=== PATIENT | female | born 1960 | race Two or more races ===

== ENCOUNTER 2022-10-31 08:03 | Inpatient (IN) | payer MEDICAID, OTHER ==
[~2022-10-31] VITALS: Ht 154.9 cm; Wt 62.1 kg
[2022-10-31 08:56] LABS: Basophils # (auto) 0.1 10 ^3/uL (0-0.2); Basophils % (auto) 1.3 % (0.0-2.0); Eosinophils # (auto) 0.2 10 ^3/uL (0-0.8); Eosinophils % (auto) 2.6 % (0.0-7.0); Hemoglobin 10.3 g/dL (12.2-16.2); Lymphocytes % (auto) 12.9 % (10.0-50.0); Mean Corpuscular Hemoglobin 28.4 pg (28.0-32.0); Mean Corpuscular Hgb Conc. 34.4 g/dL (32.0-36.0); Mean Corpuscular Volume 82.6 fL (80.0-100.0); Monocytes # (auto) 0.5 10 ^3/uL (0-1.3); Neutrophils # (auto) 5.7 10 ^3/uL (1.6-8.6); Neutrophils % (auto) 76.2 % (37.0-80.0); Nucleated Red Blood Cells % 0.1 %; Red Blood Cells 3.63 10^6/uL (4.0-5.20); Red Cell Distribution Width 14.1 % (11.8-14.3); White Blood Cell 7.5 10^3/uL (4.4-10.8)
[2022-10-31 09:02] LABS: Urine Bacteria NONE SEEN /hpf (None Seen); Urine Blood TRACE /uL (Negative); Urine WBC 1 /hpf (0 - 5)
[2022-10-31 09:38] LABS: Albumin 1.9 g/dL (3.4-5.0); Calcium 8.1 mg/dL (8.5-10.1); Potassium 3.6 mmol/L (3.5-5.1)
[2022-10-31 09:42] LABS: BUN/Creatinine Ratio 13.5 (10.0-20.0); Bilirubin, Total 0.2 mg/dL (0.2-1.0); Total Protein 6.5 g/dL (6.4-8.2)
[2022-10-31] MEDS ORDERED: cloNIDine HCL 0.1 MG TAB PO ONE (09:45)
[2022-10-31] MEDS ORDERED: SODIUM CHLORIDE 0.9% 1,000 ML IV ONE (09:45)
[2022-10-31] MEDS ORDERED: ONDANSETRON ODT 4 MG TAB PO ONE (09:45)
[2022-10-31] MEDS ORDERED: PIPERACILLIN-TAZOB 3.375GM 100 ML IV STA (09:58)
[2022-10-31 10:18] LABS: Phosphorus 4.7 mg/dL (2.5-4.90)
[2022-10-31] MEDS ORDERED: DEXTROSE (50%) 50ML SYRG IV ONE (13:00)
[2022-10-31] MEDS ORDERED: HYDR25TA5 PO (13:32)
[2022-10-31] MEDS ORDERED: BENA40TA70 PO (13:32)
[2022-10-31] MEDS ORDERED: CARV6.2551 PO (13:32)
[2022-10-31] MEDS ORDERED: ATOR40TA52 PO (13:32)
[2022-10-31] MEDS ORDERED: LEVO137T3 PO (13:32)
[2022-10-31] MEDS ORDERED: hydrALAZINE HCL 20 MG/ML VL IV ONE (13:45)
[2022-10-31] MEDS ORDERED: FUROSEMIDE 20 MG/2 ML VIAL IV ONE (13:45)
[2022-10-31] MEDS ORDERED: HYDROcodone-ACET 5/325MG TAB PO PRN (13:45)
[2022-10-31] MEDS ORDERED: ONDANSETRON HCL 4 MG/2 ML VIAL IV PRN (13:45)
[2022-10-31] MEDS ORDERED: MORPHINE SULFATE INJ 2 MG/ml SYRG IV PRN ×2 (13:45)
[2022-10-31] MEDS ORDERED: POTASSIUM CHL 20 Meq TABLET PO ONE (13:45)
[2022-10-31] MEDS ORDERED: NITROGLYCERIN 0.4 MG SL TAB SL PRN (13:45)
[2022-10-31] MEDS ORDERED: metroNIDAZOLE 500MG/100ML 100 ML IV SCH (14:00)
[2022-10-31] MEDS ORDERED: DEXTROSE (50%) 50ML SYRG IV PRN (14:15)
[2022-10-31] MEDS ORDERED: PANTOPRAZOLE 40 MG/10 ML VIAL INJ IV ONE (14:45)
[2022-10-31 16:49] LABS: Free T3 1.44 pg/mL (2.3-4.2); Free T4 (Free Thyroxine) 1.08 ng/dL (0.89-1.76)
[2022-10-31] MEDS: ACCU-CHEK COMFORT CURVE STRIP VI SCH (18:44)
[2022-10-31] MEDS: InsuLIN REG 1unit/0.01ml Soln (100units/ml) SC SCH (18:45)
[2022-10-31] MEDS ORDERED: CARVEDILOL PO SCH (22:00)
[2022-11-01] MEDS: ACCU-CHEK COMFORT CURVE STRIP VI SCH ×4 (00:44→17:22)
[2022-11-01] MEDS: InsuLIN REG 1unit/0.01ml Soln (100units/ml) SC SCH ×4 (00:44→17:22)
[2022-11-01] MEDS: LACTATED RINGER'S 1,000 ML IV SCH ×3 (01:55→17:06)
[2022-11-01] MEDS ORDERED: DEXTROSE 10% 250 ML IV ONE (02:15)
[2022-11-01] MEDS: ATORVASTATIN 20 MG TAB PO SCH ×2 (02:21→22:43)
[2022-11-01] MEDS: CARVEDILOL 12.5 MG TAB PO SCH ×3 (02:27→22:43)
[2022-11-01] MEDS: ACETAMINOPHEN 325 MG TAB PO PRN (05:33)
[2022-11-01] MEDS: cefTRIAXone 1GM/50ML D5W 50 ML IV SCH ×2 (06:26→09:52)
[2022-11-01 07:20] LABS: Basophils # (auto) 0.2 10 ^3/uL (0-0.2); Basophils % (auto) 3.9 % (0.0-2.0); Eosinophils # (auto) 0.2 10 ^3/uL (0-0.8); Eosinophils % (auto) 3.1 % (0.0-7.0); Hematocrit 26.8 % (36.0-46.0); Hemoglobin 9.5 g/dL (12.2-16.2); Lymphocytes # (auto) 0.7 10 ^3/uL (0.4-5.4); Mean Corpuscular Hgb Conc. 35.3 g/dL (32.0-36.0); Mean Corpuscular Volume 82.3 fL (80.0-100.0); Monocytes # (auto) 0.5 10 ^3/uL (0-1.3); Monocytes % (auto) 8.8 % (0.0-12.0); Neutrophils # (auto) 4.5 10 ^3/uL (1.6-8.6); Neutrophils % (auto) 72.2 % (37.0-80.0); Red Blood Cells 3.26 10^6/uL (4.0-5.20); Red Cell Distribution Width 14.5 % (11.8-14.3); White Blood Cell 6.2 10^3/uL (4.4-10.8)
[2022-11-01 07:46] LABS: BUN/Creatinine Ratio 12.9 (10.0-20.0); Calcium 7.7 mg/dL (8.5-10.1); Potassium 3.6 mmol/L (3.5-5.1)
[2022-11-01] MEDS: PANTOPRAZOLE 40 MG/10 ML VIAL INJ IV SCH (09:52)
[2022-11-01] MEDS: FUROSEMIDE 20 MG/2 ML VIAL IV SCH (09:52)
[2022-11-01] MEDS: POTASSIUM CHL 20 Meq TABLET PO SCH (09:54)
[2022-11-01] MEDS: HCTZ 25 MG TAB PO SCH (09:54)
[2022-11-01] MEDS: LEVOTHYROXINE SODIUM 25 MCG TAB PO SCH (09:55)
[2022-11-01] MEDS: amLODIPine BESYLATE 5 MG TAB PO SCH (09:55)
[2022-11-01] MEDS: BENAZEPRIL HCL 10 MG TAB PO SCH (09:55)
[2022-11-01] MEDS: LEVOTHYROXINE SODIUM 112 MCG TAB PO SCH (09:56)
[2022-11-01] MEDS ORDERED: PATIENTS OWN MEDICATION (Benazepril Hcl 1 TAB) PO SCH (10:00)
[2022-11-01] MEDS ORDERED: PATIENTS OWN MEDICATION (Atorvastatin Calcium 1 TAB) PO SCH (10:00)
[2022-11-01] MEDS ORDERED: PATIENTS OWN MEDICATION (Levothyroxine Sodium 1 TAB) PO SCH (10:00)
[2022-11-01 10:40] VITALS: BP 161/81
[2022-11-01 13:00] VITALS: BP 161/81
[2022-11-01 14:34] LABS: INR 1.01 (0.9-1.15)
[2022-11-01 14:38] VITALS: BP 156/80
[2022-11-01] MEDS ORDERED: diphenhdrAMINE HCL 50 MG/1 ML VL ONE (15:10)
[2022-11-01] MEDS: MIDAZOLAM HCL 2MG/2ML 2ml VIAL (1mg/ml) ONE ×2 (15:33→15:37)
[2022-11-01] MEDS: fentaNYL CITRATE 100 MCG/2 ML VL ONE ×2 (15:33→15:37)
[2022-11-01] MEDS: metroNIDAZOLE 500MG/100ML 100 ML IV SCH ×2 (16:43→22:44)
[2022-11-01 17:00] VITALS: BP 153/78
[2022-11-01 22:00] VITALS: BP 173/81
[2022-11-02] MEDS: ACETAMINOPHEN 325 MG TAB PO PRN ×3 (00:12→18:11)
[2022-11-02] MEDS: ACCU-CHEK COMFORT CURVE STRIP VI SCH ×4 (00:18→18:11)
[2022-11-02 05:00] VITALS: BP 167/85
[2022-11-02] MEDS: hydrALAZINE HCL 20 MG/ML VL IV PRN ×2 (05:41→16:53)
[2022-11-02] MEDS: metroNIDAZOLE 500MG/100ML 100 ML IV SCH ×3 (05:41→21:37)
[2022-11-02] MEDS: LACTATED RINGER'S 1,000 ML IV SCH (05:45)
[2022-11-02] MEDS: InsuLIN REG 1unit/0.01ml Soln (100units/ml) SC SCH ×4 (05:51→18:14)
[2022-11-02 06:29] LABS: Basophils # (auto) 0.1 10 ^3/uL (0-0.2); Basophils % (auto) 2.4 % (0.0-2.0); Eosinophils # (auto) 0.3 10 ^3/uL (0-0.8); Hematocrit 26.6 % (36.0-46.0); Hemoglobin 9.4 g/dL (12.2-16.2); Lymphocytes % (auto) 17.6 % (10.0-50.0); Mean Corpuscular Hgb Conc. 35.1 g/dL (32.0-36.0); Mean Corpuscular Volume 82.6 fL (80.0-100.0); Monocytes # (auto) 0.6 10 ^3/uL (0-1.3); Monocytes % (auto) 10.1 % (0.0-12.0); Neutrophils # (auto) 3.7 10 ^3/uL (1.6-8.6); Neutrophils % (auto) 64.9 % (37.0-80.0); Red Blood Cells 3.22 10^6/uL (4.0-5.20); White Blood Cell 5.8 10^3/uL (4.4-10.8)
[2022-11-02 06:48] LABS: BUN/Creatinine Ratio 13.5 (10.0-20.0); Calcium 8.3 mg/dL (8.5-10.1); Potassium 3.3 mmol/L (3.5-5.1)
[2022-11-02 09:00] VITALS: BP 169/86
[2022-11-02] MEDS: cefTRIAXone 1GM/50ML D5W 50 ML IV SCH (09:33)
[2022-11-02] MEDS: amLODIPine BESYLATE 5 MG TAB PO SCH (09:36)
[2022-11-02] MEDS: POTASSIUM CHL 20 Meq TABLET PO SCH (09:37)
[2022-11-02] MEDS: HCTZ 25 MG TAB PO SCH (09:37)
[2022-11-02] MEDS: BENAZEPRIL HCL 10 MG TAB PO SCH (09:38)
[2022-11-02] MEDS: LEVOTHYROXINE SODIUM 25 MCG TAB PO SCH (09:38)
[2022-11-02] MEDS: LEVOTHYROXINE SODIUM 112 MCG TAB PO SCH (09:39)
[2022-11-02] MEDS: CARVEDILOL 12.5 MG TAB PO SCH ×2 (09:40→21:38)
[2022-11-02] MEDS: PANTOPRAZOLE 40 MG/10 ML VIAL INJ IV SCH (09:40)
[2022-11-02] MEDS: FUROSEMIDE 20 MG/2 ML VIAL IV SCH (09:40)
[2022-11-02 13:00] VITALS: BP 162/78
[2022-11-02 17:00] VITALS: BP 174/93
[2022-11-02] MEDS: ATORVASTATIN 20 MG TAB PO SCH (21:37)
[2022-11-02 21:53] VITALS: BP 118/64
[2022-11-03] MEDS: ACCU-CHEK COMFORT CURVE STRIP VI SCH ×3 (00:18→12:00)
[2022-11-03] MEDS: InsuLIN REG 1unit/0.01ml Soln (100units/ml) SC SCH ×3 (00:18→12:00)
[2022-11-03 05:00] VITALS: BP 147/89
[2022-11-03 05:34] LABS: Basophils # (auto) 0 10 ^3/uL (0-0.2); Basophils % (auto) 0.3 % (0.0-2.0); Eosinophils # (auto) 0.3 10 ^3/uL (0-0.8); Eosinophils % (auto) 4.7 % (0.0-7.0); Hematocrit 30.4 % (36.0-46.0); Hemoglobin 10.7 g/dL (12.2-16.2); Lymphocytes # (auto) 1.1 10 ^3/uL (0.4-5.4); Lymphocytes % (auto) 14.5 % (10.0-50.0); Mean Corpuscular Hemoglobin 28.7 pg (28.0-32.0); Mean Corpuscular Hgb Conc. 35.4 g/dL (32.0-36.0); Mean Corpuscular Volume 81.3 fL (80.0-100.0); Monocytes # (auto) 0.7 10 ^3/uL (0-1.3); Neutrophils # (auto) 5.2 10 ^3/uL (1.6-8.6); Neutrophils % (auto) 70.5 % (37.0-80.0); Red Blood Cells 3.74 10^6/uL (4.0-5.20); Red Cell Distribution Width 14.5 % (11.8-14.3); White Blood Cell 7.3 10^3/uL (4.4-10.8)
[2022-11-03 05:52] LABS: BUN/Creatinine Ratio 18.1 (10.0-20.0); Calcium 8.4 mg/dL (8.5-10.1); Potassium 4.1 mmol/L (3.5-5.1)
[2022-11-03] MEDS: metroNIDAZOLE 500MG/100ML 100 ML IV SCH (06:14)
[2022-11-03 08:57] VITALS: BP 141/73
[2022-11-03] MEDS ORDERED: AML5T PO (09:55)
[2022-11-03] MEDS ORDERED: METR500T PO (09:55)
[2022-11-03] MEDS ORDERED: FURO1TAB33 PO (09:55)
[2022-11-03] MEDS: cefTRIAXone 1GM/50ML D5W 50 ML IV SCH (10:14)
[2022-11-03] MEDS: POTASSIUM CHL 20 Meq TABLET PO SCH (10:15)
[2022-11-03] MEDS: PANTOPRAZOLE 40 MG/10 ML VIAL INJ IV SCH (10:15)
[2022-11-03] MEDS: FUROSEMIDE 20 MG/2 ML VIAL IV SCH (10:15)
[2022-11-03] MEDS: CARVEDILOL 12.5 MG TAB PO SCH (10:16)
[2022-11-03] MEDS: amLODIPine BESYLATE 5 MG TAB PO SCH (10:16)
[2022-11-03] MEDS: BENAZEPRIL HCL 10 MG TAB PO SCH (10:17)
[2022-11-03] MEDS: HCTZ 25 MG TAB PO SCH (10:18)
[2022-11-03] MEDS: LEVOTHYROXINE SODIUM 25 MCG TAB PO SCH (10:18)
[2022-11-03] MEDS: LEVOTHYROXINE SODIUM 112 MCG TAB PO SCH (10:20)
[2022-11-03 10:54] VITALS: BP 141/73
[2022-11-03] MEDS ORDERED: HYDR25TA5 PO (11:31)
== END 2022-11-03 12:51 | disposition home or self-care (01) | DRG 249 ==
LOC: ER 08:03 → TELE 14:05 → TELE-WESTW 11-01 10:42
PROVIDERS: ADMIT Registered Nurse; ATTEND Internal Medicine Pulmonary Disease
PROC: 0DB68ZX Excision of Stomach, Via Natural or Artificial Opening Endoscopic, Diagnostic (ICD-10-PCS; 2022-11-01)
PROC: 0DB98ZX Excision of Duodenum, Via Natural or Artificial Opening Endoscopic, Diagnostic (ICD-10-PCS; principal; 2022-11-01 15:03)
DX: K52.9 Noninfective gastroenteritis and colitis, unspecified (principal); I31.39 Other pericardial effusion (noninflammatory); E11.649 Type 2 diabetes mellitus with hypoglycemia without coma; I10 Essential (primary) hypertension; D64.9 Anemia, unspecified; I16.0 Hypertensive urgency; K29.70 Gastritis, unspecified, without bleeding; R09.89 Other specified symptoms and signs involving the circulatory and respiratory systems; E03.9 Hypothyroidism, unspecified; Z85.850 Personal history of malignant neoplasm of thyroid; K57.30 Diverticulosis of large intestine without perforation or abscess without bleeding
CPT/HCPCS: 36415; 43239; 71045; 74176; 80048; 80053; 81001; 82962; 83690; 83735; 83880; 84100; 84439; 84481; 84484; 85025; 85610; 86850; 86900; 86901; 87040; 87081; 93306; 96360; C9113; G0378; J0696; J1815; J2250; J2405; J2543; J3490; Q0162

== ENCOUNTER 2022-11-06 20:29 | Emergency (ER) | payer MEDICAID ==
[~2022-11-06] VITALS: Ht 154.9 cm; Wt 56.0 kg
[~2022-11-06 20:29] MED LIST: AML5T PO; ATOR40TA52 PO; BENA40TA70 PO; CARV6.2551 PO; FURO1TAB33 PO; HYDR25TA5 PO; LEVO137T3 PO; METR500T PO
[2022-11-06 21:45] LABS: Basophils # (auto) 0.1 10 ^3/uL (0-0.2); Eosinophils # (auto) 0.3 10 ^3/uL (0-0.8); Hematocrit 33.3 % (36.0-46.0); Monocytes # (auto) 0.8 10 ^3/uL (0-1.3); Nucleated Red Blood Cells % 0.1 %
[2022-11-06 21:46] LABS: Eosinophils % (auto) 2.9 % (0.0-7.0); Hemoglobin 11.7 g/dL (12.2-16.2); Lymphocytes # (auto) 1.4 10 ^3/uL (0.4-5.4); Lymphocytes % (auto) 14.8 % (10.0-50.0); Mean Corpuscular Hemoglobin 28.9 pg (28.0-32.0); Mean Corpuscular Volume 82.7 fL (80.0-100.0); Monocytes % (auto) 7.7 % (0.0-12.0); Neutrophils # (auto) 7.2 10 ^3/uL (1.6-8.6); Neutrophils % (auto) 73.6 % (37.0-80.0); Red Blood Cells 4.03 10^6/uL (4.0-5.20); Red Cell Distribution Width 14.3 % (11.8-14.3); White Blood Cell 9.8 10^3/uL (4.4-10.8)
[2022-11-06 21:52] LABS: Albumin 2.2 g/dL (3.4-5.0); Calcium 8.8 mg/dL (8.5-10.1); Potassium 3.9 mmol/L (3.5-5.1)
[2022-11-06 21:55] LABS: BUN/Creatinine Ratio 22.9 (10.0-20.0); Bilirubin, Total 0.3 mg/dL (0.2-1.0); Total Protein 7.6 g/dL (6.4-8.2)
[2022-11-06] MEDS ORDERED: DICYCLOMINE HCL (10MG/ML) 2 ML AMPULE IM ONE (22:00)
[2022-11-06 23:30] VITALS: BP 138/86
== END 2022-11-06 23:50 | disposition home or self-care (01) ==
LOC: ER 20:32
DX: R10.12 Left upper quadrant pain (principal); R11.2 Nausea with vomiting, unspecified; R19.7 Diarrhea, unspecified; E11.9 Type 2 diabetes mellitus without complications; I10 Essential (primary) hypertension; Z90.710 Acquired absence of both cervix and uterus
CPT/HCPCS: 36415; 74176; 80053; 83690; 85025; 96372; 99285; J0500

== ENCOUNTER 2023-05-02 09:39 | Emergency (ER) | payer MEDICAID ==
[~2023-05-02] VITALS: Ht 154.9 cm; Wt 53.1 kg
[2023-05-02] MEDS ORDERED: ONDANSETRON ODT 4 MG TAB PO ONE (10:15)
[2023-05-02 10:20] VITALS: BP 103/58; PULSE 83; RESP 1; TEMP 97.5; O2SAT 100
[2023-05-02 10:54] LABS: COVID19 ANTIGEN SOFIA FIA NEGATIVE (NEGATIVE); Rapid Influenza A Negative (Negative); Rapid Influenza B Negative (Negative)
[2023-05-02] MEDS ORDERED: ACET500T58 PO (11:13)
[2023-05-02] MEDS ORDERED: LORA10CA PO (11:13)
[2023-05-02] MEDS ORDERED: DEXT60TA4 PO (11:13)
[2023-05-02] MEDS ORDERED: BENZ100C97 PO (11:13)
== END 2023-05-02 11:24 | disposition home or self-care (01) ==
LOC: ER 09:39
DX: B33.8 Other specified viral diseases (principal); E11.9 Type 2 diabetes mellitus without complications; I10 Essential (primary) hypertension; Z90.710 Acquired absence of both cervix and uterus; Z20.822 Contact with and (suspected) exposure to COVID-19
CPT/HCPCS: 36415; 71046; 87426; 87804; 99284; Q0162

== ENCOUNTER 2023-06-25 17:14 | Emergency (ER) | payer MEDICAID ==
[~2023-06-25] VITALS: Ht 154.9 cm; Wt 61.4 kg
[~2023-06-25 17:14] MED LIST changes: +ACET500T58 PO; +BENZ100C97 PO; +DEXT60TA4 PO; +LORA10CA PO
[2023-06-25 17:36] VITALS: O2SAT 98
[2023-06-25 19:56] LABS: Basophils # (auto) 0.1 10 ^3/uL (0-0.2); Basophils % (auto) 1.4 % (0.0-2.0); Eosinophils # (auto) 0.1 10 ^3/uL (0-0.8); Eosinophils % (auto) 2.7 % (0.0-7.0); Hematocrit 31.9 % (36.0-46.0); Hemoglobin 10.5 g/dL (12.2-16.2); Lymphocytes % (auto) 19.1 % (10.0-50.0); Mean Corpuscular Volume 84.7 fL (80.0-100.0); Monocytes # (auto) 0.4 10 ^3/uL (0-1.3); Monocytes % (auto) 7.6 % (0.0-12.0); Neutrophils # (auto) 3.8 10 ^3/uL (1.6-8.6); Neutrophils % (auto) 69.2 % (37.0-80.0); Nucleated Red Blood Cells % 0.1 %; Red Blood Cells 3.77 10^6/uL (4.0-5.20); White Blood Cell 5.5 10^3/uL (4.4-10.8)
[2023-06-25 20:16] LABS: Anion Gap 6 (5-15); Carbon Dioxide 25 mmol/L (20-30); Chloride 111 mmol/L (98-107); Potassium 3.8 mmol/L (3.5-5.1); Sodium 142 mmol/L (136-145)
[2023-06-25 20:17] LABS: Calcium 8.2 mg/dL (8.5-10.1)
[2023-06-25 20:22] LABS: Blood Urea Nitrogen 21 mg/dL (9-23); Glucose 266 mg/dL (74-106)
[2023-06-25] MEDS ORDERED: CARV12.544 PO (22:18)
[2023-06-25] MEDS ORDERED: cloNIDine HCL 0.1 MG TAB PO ONE (23:00)
[2023-06-26 00:18] VITALS: BP 151/82; PULSE 79; RESP 15
[2023-06-26] MEDS ORDERED: CLON0.1T PO (00:44)
== END 2023-06-25 22:09 | disposition home or self-care (01) ==
LOC: ER 17:14
DX: I10 Essential (primary) hypertension (principal); E11.9 Type 2 diabetes mellitus without complications; Z98.890 Other specified postprocedural states; Z79.899 Other long term (current) drug therapy
CPT/HCPCS: 36415; 70450; 80048; 85025; 93005

== ENCOUNTER → 2023-07-04 | Outpatient (CLI) | payer MEDICAID ==
[~2023-07-04] MED LIST changes: +CARV12.544 PO; +CLON0.1T PO
[2023-07-04 12:47] LABS: Creatinine, Urine 51.1 mg/dL (30.0-125.0)
[2023-07-04 12:50] LABS: Alanine Aminotransferase 21 U/L (7-40); Alkaline Phosphatase 70 U/L (46-116); Anion Gap 5 (5-15); Aspartate Aminotransferase 37 U/L (13-40); BUN/Creatinine Ratio 14.1 (10.0-20.0); Blood Urea Nitrogen 12 mg/dL (9-23); Calcium 8.6 mg/dL (8.5-10.1); Carbon Dioxide 26 mmol/L (20-30); Chloride 112 mmol/L (98-107); Glucose 92 mg/dL (74-106); Potassium 3.5 mmol/L (3.5-5.1); Sodium 143 mmol/L (136-145)
[2023-07-04 12:51] LABS: Albumin 3.2 g/dL (3.2-4.8); Bilirubin, Total 0.5 mg/dL (0.2-1.0); Total Protein 5.8 g/dL (5.7-8.2)
== END | disposition home or self-care (01) ==
LOC: LAB 10:56
PROVIDERS: ATTEND Internal Medicine
DX: I10 Essential (primary) hypertension (principal); B18.2 Chronic viral hepatitis C
CPT/HCPCS: 36415; 80053; 82043; 82570

== ENCOUNTER 2023-10-14 12:23 | Inpatient (IN) | payer MEDICAID ==
[~2023-10-14] VITALS: Ht 154.9 cm; Wt 66.7 kg
[~2023-10-14 12:23] MED LIST changes: -BENA40TA70 PO; +BENA40TA71 PO
[2023-10-14] MEDS: ASPirin 81 mg TAB PO ONE (12:40)
[2023-10-14 13:11] LABS: Basophils # (auto) 0.1 10 ^3/uL (0-0.2); Eosinophils # (auto) 0.1 10 ^3/uL (0-0.8); Hemoglobin 10.9 g/dL (12.2-16.2); Lymphocytes # (auto) 1.2 10 ^3/uL (0.4-5.4); Neutrophils # (auto) 4.3 10 ^3/uL (1.6-8.6)
[2023-10-14 13:13] LABS: Basophils % (auto) 1.3 % (0.0-2.0); Eosinophils % (auto) 1.8 % (0.0-7.0); Hematocrit 32.4 % (36.0-46.0); Lymphocytes % (auto) 19.8 % (10.0-50.0); Mean Corpuscular Hemoglobin 26.8 pg (28.0-32.0); Mean Corpuscular Hgb Conc. 33.7 g/dL (32.0-36.0); Mean Corpuscular Volume 79.5 fL (80.0-100.0); Monocytes # (auto) 0.4 10 ^3/uL (0-1.3); Monocytes % (auto) 6.2 % (0.0-12.0); Neutrophils % (auto) 70.9 % (37.0-80.0); Red Blood Cells 4.08 10^6/uL (4.0-5.20); Red Cell Distribution Width 16.6 % (11.8-14.3)
[2023-10-14 13:26] LABS: INR 1.04 (0.9-1.15); Partial Thromboplastin Time 27.9 SEC (24.5-34.5)
[2023-10-14 13:28] LABS: Alanine Aminotransferase 21 U/L (7-40); Albumin 3.4 g/dL (3.2-4.8); Alkaline Phosphatase 78 U/L (46-116); Anion Gap 8 (5-15); Aspartate Aminotransferase 46 U/L (13-40); BUN/Creatinine Ratio 10.2 (10.0-20.0); Blood Urea Nitrogen 18 mg/dL (9-23); Calcium 7.9 mg/dL (8.5-10.1); Carbon Dioxide 21 mmol/L (20-30); Chloride 114 mmol/L (98-107); Glucose 87 mg/dL (74-106); Sodium 143 mmol/L (136-145)
[2023-10-14 13:29] LABS: Bilirubin, Total 0.2 mg/dL (0.2-1.0); Total Protein 6.3 g/dL (5.7-8.2)
[2023-10-14 16:07] VITALS: PULSE 64
[2023-10-14] MEDS ORDERED: ACETAMINOPHEN 325 MG TAB PO PRN (16:45)
[2023-10-14] MEDS ORDERED: MORPHINE SULFATE INJ 2 MG/ml SYRG IV PRN (16:45)
[2023-10-14] MEDS ORDERED: NITROGLYCERIN 0.4 MG SL TAB SL PRN (16:45)
[2023-10-14 17:19] LABS: Triglycerides 129 mg/dL (< 150)
[2023-10-14 17:20] LABS: LDL Cholesterol 79 mg/dL (< 100)
[2023-10-14 17:21] LABS: Cholesterol 159 mg/dL (< 200); HDL Cholesterol 54 mg/dL (40-59)
[2023-10-14] MEDS: SODIUM CHLORIDE 0.9% 1,000 ML IV SCH (20:15)
[2023-10-15] VITALS (7 sets, daily range): BP systolic 141–154; BP diastolic 81–97; PULSE 70–81; RESP 17–20; TEMP 97.6–98; O2SAT 93–99
[2023-10-15] MEDS ORDERED: DEXTROSE (50%) 50ML SYRG IV PRN (01:00)
[2023-10-15] MEDS: CARVEDILOL 12.5 MG TAB PO SCH (01:19)
[2023-10-15 05:33] LABS: Eosinophils # (auto) 0.1 10 ^3/uL (0-0.8); Eosinophils % (auto) 2.9 % (0.0-7.0); Hematocrit 31.6 % (36.0-46.0); Hemoglobin 10.3 g/dL (12.2-16.2); Mean Corpuscular Hemoglobin 26.8 pg (28.0-32.0); Monocytes # (auto) 0.5 10 ^3/uL (0-1.3); Neutrophils # (auto) 3.1 10 ^3/uL (1.6-8.6)
[2023-10-15 05:39] LABS: Basophils # (auto) 0.1 10 ^3/uL (0-0.2); Basophils % (auto) 1.4 % (0.0-2.0); Lymphocytes # (auto) 1.3 10 ^3/uL (0.4-5.4); Lymphocytes % (auto) 25.5 % (10.0-50.0); Mean Corpuscular Hgb Conc. 32.6 g/dL (32.0-36.0); Monocytes % (auto) 9.1 % (0.0-12.0); Neutrophils % (auto) 61.1 % (37.0-80.0); Nucleated Red Blood Cells % 0.1 %; Red Blood Cells 3.85 10^6/uL (4.0-5.20); Red Cell Distribution Width 16.9 % (11.8-14.3)
[2023-10-15 05:50] LABS: Alanine Aminotransferase 21 U/L (7-40); Albumin 3.4 g/dL (3.2-4.8); Alkaline Phosphatase 70 U/L (46-116); Anion Gap 9 (5-15); Aspartate Aminotransferase 24 U/L (13-40); BUN/Creatinine Ratio 9.6 (10.0-20.0); Blood Urea Nitrogen 17 mg/dL (9-23); Calcium 7.7 mg/dL (8.5-10.1); Carbon Dioxide 16 mmol/L (20-30); Chloride 114 mmol/L (98-107); Glucose 163 mg/dL (74-106); Potassium 3.6 mmol/L (3.5-5.1); Sodium 139 mmol/L (136-145)
[2023-10-15 05:51] LABS: Bilirubin, Total 0.2 mg/dL (0.2-1.0); Total Protein 6.6 g/dL (5.7-8.2)
[2023-10-15] MEDS: ACCU-CHEK COMFORT CURVE STRIP VI SCH (07:21)
[2023-10-15] MEDS: LEVOTHYROXINE SODIUM 112 MCG TAB PO SCH (07:28)
[2023-10-15] MEDS: LEVOTHYROXINE SODIUM 25 MCG TAB PO SCH (07:28)
[2023-10-15] MEDS: InsuLIN REG 1unit/0.01ml Soln (100units/ml) SC SCH ×2 (07:29→21:43)
[2023-10-15] MEDS: amLODIPine BESYLATE 5 MG TAB PO SCH (09:34)
[2023-10-15] MEDS: FUROSEMIDE 20 MG TAB PO SCH (09:34)
[2023-10-15] MEDS: hydroCHLOROthiazide 25 MG TAB PO SCH (09:35)
[2023-10-15] MEDS: ASPirin 81 mg TAB PO SCH (09:36)
[2023-10-15] MEDS: ENOXAPARIN SOD 30 MG/0.3 ML SYRINGE SC SCH (09:36)
[2023-10-15 11:08] LABS: Phosphorus 1.8 mg/dL (2.4-5.1)
[2023-10-15 12:53] LABS: Magnesium 1.8 mg/dL (1.6-2.6)
[2023-10-15] MEDS ORDERED: hydrALAZINE HCL 20 MG/ML VL IV PRN (14:30)
[2023-10-15] MEDS: MAGNESIUM SULFATE 1GM/100ML 100 ML IV ONE (15:25)
[2023-10-15] MEDS: INSULIN LANTUS (GLARGINE) 1 /0.01ml (100units/ml) SC ONE (15:34)
[2023-10-15 16:04] LABS: Free T3 1.75 pg/mL (2.3-4.2); Free T4 (Free Thyroxine) 1.13 ng/dL (0.89-1.76)
[2023-10-15] MEDS: POTASSIUM PHOSPHATE 44 MEQ in D5W 5% 250 ML IV ONE (19:42)
[2023-10-15] MEDS: SODIUM BICARB 50mEq/50ml Vial 50 ML in SOD CHL 0.45% 1,000 ML IV SCH (20:54)
[2023-10-15 20:56] LABS: Urine Bacteria None Seen /hpf (None Seen)
[2023-10-15 21:14] LABS: Urine Blood TRACE /uL (Negative); Urine Clarity Clear (Clear); Urine Color Colorless (Yellow); Urine Protein, UAD 2+ (Negative); Urine Specific Gravity 1.008 (1.001-1.035); Urine Urobilinogen Normal (Negative); Urine WBC <1 /hpf (0 - 5); Urine pH 6.5 (5.0-9.0)
[2023-10-15 21:20] LABS: Protein, Urine 170.1 mg/dL (0.0-11.9)
[2023-10-15 21:22] LABS: Creatinine, Urine 21.35 mg/dL (30.0-125.0); Urine Protein/Creatinine Ratio 7.97
[2023-10-16 05:00] VITALS: BP 142/90; PULSE 74; RESP 14; TEMP 98; O2SAT 97
[2023-10-16 07:17] LABS: Basophils # (auto) 0.1 10 ^3/uL (0-0.2); Basophils % (auto) 2.1 % (0.0-2.0); Eosinophils # (auto) 0.2 10 ^3/uL (0-0.8); Eosinophils % (auto) 3.9 % (0.0-7.0); Hemoglobin 11.2 g/dL (12.2-16.2); Lymphocytes # (auto) 1.4 10 ^3/uL (0.4-5.4); Lymphocytes % (auto) 25.4 % (10.0-50.0); Mean Corpuscular Hemoglobin 26.8 pg (28.0-32.0); Mean Corpuscular Volume 78.8 fL (80.0-100.0); Monocytes # (auto) 0.5 10 ^3/uL (0-1.3); Monocytes % (auto) 9.8 % (0.0-12.0); Neutrophils # (auto) 3.2 10 ^3/uL (1.6-8.6); Neutrophils % (auto) 58.8 % (37.0-80.0); Red Blood Cells 4.19 10^6/uL (4.0-5.20); Red Cell Distribution Width 16.7 % (11.8-14.3); White Blood Cell 5.4 10^3/uL (4.4-10.8)
[2023-10-16 07:24] LABS: Alanine Aminotransferase 19 U/L (7-40); Alkaline Phosphatase 69 U/L (46-116); Anion Gap 10 (5-15); BUN/Creatinine Ratio 10.7 (10.0-20.0); Blood Urea Nitrogen 16 mg/dL (9-23); Calcium 8.3 mg/dL (8.5-10.1); Carbon Dioxide 19 mmol/L (20-30); Chloride 111 mmol/L (98-107); Glucose 151 mg/dL (74-106); Potassium 3.8 mmol/L (3.5-5.1); Sodium 140 mmol/L (136-145)
[2023-10-16 07:26] LABS: Albumin 3.5 g/dL (3.2-4.8); Bilirubin, Total 0.3 mg/dL (0.2-1.0); Total Protein 6.6 g/dL (5.7-8.2)
[2023-10-16 07:35] LABS: Aspartate Aminotransferase 34 U/L (13-40)
[2023-10-16 08:00] VITALS: PULSE 72
[2023-10-16 08:36] VITALS: BP 144/82; PULSE 71; RESP 17; TEMP 98; O2SAT 98
[2023-10-16] MEDS: NIFEdipine ER 30 MG TAB PO SCH (10:42)
[2023-10-16 12:45] VITALS: BP 165/84; PULSE 69; RESP 16; TEMP 97.6; O2SAT 99
[2023-10-16 12:50] VITALS: BP 122/75; PULSE 74
[2023-10-16] MEDS ORDERED: NIFE1TAB36 PO (14:04)
[2023-10-16 17:03] VITALS: BP 123/73; PULSE 72; RESP 18; TEMP 98.1; O2SAT 96
== END 2023-10-16 16:45 | disposition home or self-care (01) | DRG 422 ==
LOC: ER 12:23 → TELE 16:53 → TELE-WESTW 10-15 09:59
PROVIDERS: ADMIT Internal Medicine Pulmonary Disease; ATTEND Emergency Medicine
DX: E86.0 Dehydration (principal); N17.0 Acute kidney failure with tubular necrosis; D63.1 Anemia in chronic kidney disease; I51.3 Intracardiac thrombosis, not elsewhere classified; E83.39 Other disorders of phosphorus metabolism; E11.22 Type 2 diabetes mellitus with diabetic chronic kidney disease; E78.5 Hyperlipidemia, unspecified; I12.9 Hypertensive chronic kidney disease with stage 1 through stage 4 chronic kidney disease, or unspecified chronic kidney disease; E87.6 Hypokalemia; N18.2 Chronic kidney disease, stage 2 (mild); I1A.0 Resistant hypertension; M41.9 Scoliosis, unspecified; M81.0 Age-related osteoporosis without current pathological fracture; Z82.49 Family history of ischemic heart disease and other diseases of the circulatory system; Z85.850 Personal history of malignant neoplasm of thyroid; Z79.899 Other long term (current) drug therapy; Z79.84 Long term (current) use of oral hypoglycemic drugs; Z79.1 Long term (current) use of non-steroidal anti-inflammatories (NSAID); Z87.891 Personal history of nicotine dependence; Z90.710 Acquired absence of both cervix and uterus; Z82.3 Family history of stroke; Z83.3 Family history of diabetes mellitus; Z79.4 Long term (current) use of insulin
CPT/HCPCS: 36415; 71046; 76775; 80053; 80061; 81001; 82306; 82570; 82962; 83735; 83880; 83930; 83970; 84100; 84156; 84300; 84439; 84443; 84481; 84484; 85025; 85610; 85730; 87340; 93005; 93306; 93976; 99291; G0378; J1815; J7060

== ENCOUNTER → 2023-10-25 | Outpatient (CLI) | payer MEDICAID ==
[~2023-10-25] MED LIST changes: +NIFE1TAB36 PO
[2023-10-25 10:28] LABS: Anion Gap 5 (5-15); Carbon Dioxide 27 mmol/L (20-30); Chloride 109 mmol/L (98-107); Potassium 4.4 mmol/L (3.5-5.1); Sodium 141 mmol/L (136-145)
[2023-10-25 10:29] LABS: Calcium 9.1 mg/dL (8.5-10.1)
[2023-10-25 10:34] LABS: BUN/Creatinine Ratio 19.4 (10.0-20.0); Blood Urea Nitrogen 27 mg/dL (9-23); Creatinine, Urine 126.24 mg/dL (30.0-125.0); Glucose 164 mg/dL (74-106)
== END | disposition home or self-care (01) ==
LOC: LAB 10:00
PROVIDERS: ATTEND Internal Medicine
DX: E11.22 Type 2 diabetes mellitus with diabetic chronic kidney disease (principal); N18.2 Chronic kidney disease, stage 2 (mild)
CPT/HCPCS: 36415; 80048; 82043; 82570; 83036

== ENCOUNTER → 2023-10-29 | Outpatient (CLI) | payer MEDICAID | END | disposition home or self-care (01) | LOC: LAB 07:39 | PROVIDERS: ATTEND Internal Medicine | DX: Z12.11 Encounter for screening for malignant neoplasm of colon (principal); E11.22 Type 2 diabetes mellitus with diabetic chronic kidney disease; N18.2 Chronic kidney disease, stage 2 (mild) | CPT/HCPCS: 82270 ==

== ENCOUNTER → 2023-11-27 | Outpatient (CLI) | payer MEDICAID ==
[2023-11-27 07:35] LABS: Chloride 110 mmol/L (98-107); Potassium 4.6 mmol/L (3.5-5.1); Sodium 139 mmol/L (136-145)
[2023-11-27 07:36] LABS: Anion Gap 3 (5-15); Carbon Dioxide 26 mmol/L (20-30)
[2023-11-27 07:37] LABS: Calcium 9.2 mg/dL (8.5-10.1)
[2023-11-27 07:41] LABS: BUN/Creatinine Ratio 17.4 (10.0-20.0); Blood Urea Nitrogen 19 mg/dL (9-23); Glucose 192 mg/dL (74-106)
== END | disposition home or self-care (01) ==
LOC: LAB 06:39
PROVIDERS: ATTEND Internal Medicine
DX: N18.30 Chronic kidney disease, stage 3 unspecified (principal)
CPT/HCPCS: 36415; 80048

== ENCOUNTER 2024-10-04 17:06 | Emergency (ER) | payer MEDICAID ==
[~2024-10-04] VITALS: Ht 154.9 cm; Wt 58.6 kg
--- NOTE | 2024-10-04 17:52 | ED.PDOC ---
Musculoskeletal HPI Comments 64 year old female presents to ED with chief complaint rt ankle/foot pain s/p fall today. Pt states she accidentally stepped on a tennis ball while walking to her garage and fell. No LOC and no blood loss. Pt is able to ambulate. Current pain level 9/10. No other signs/symptoms or history reported. Vital signs stable during triage. Chief Complaint: Lower Extremity Time Seen by MD: 17:45 Primary Care Provider: UNKNOWN Reviewed Notes: Nurses Notes, Medications, Allergies Allergies: Coded Allergies: No Known Drug Allergy (Verified Allergy, Unknown, 10/31/22) Home Meds Active Scripts Nifedipine (Nifedipine ER) 30 Mg Tab, 30 MG PO DAILY for 30 Days, #30 TAB 3 Refills Prov:ELENA NELSON RESIDENT 10/16/23 Clonidine Hydrochloride (Clonidine Hcl) 0.1 Mg Tab, 1 TAB PO QPM, #30 TAB 2 Refills Prov:CINDY MCDONNELL [employer] 06/26/23 Carvedilol (Carvedilol) 12.5 Mg Tab, 1 TAB PO BID, #60 TAB 5 Refills Prov:CINDY MCDONNELL [employer] [facility] 06/25/23 Acetaminophen (Acetaminophen) 500 Mg Tab, 500 MG PO Q4HP PRN, #30 TAB Prov:DERECK GRAY PAC 05/02/23 Dextromethorphan-Guaifenesin (Mucinex Dm Maximum Streng) 1 Tab Tab, 1 TAB PO BID, #30 TAB Prov:DERECK GRAY [facility] 05/02/23 Benzonatate (Benzonatate) 100 Mg Cap, 1 CAP PO TID, #20 CAP Prov:DERECK GRAY [facility] 05/02/23 Loratadine (Claritin) 10 Mg Cap, 10 MG PO DAILY for 14 Days, #14 CAP Prov:DERECK GRAY [facility] 05/02/23 Hctz (Hydrochlorothiazide) 25 Mg Tab, 25 MG PO DAILY for 30 Days, #30 TAB Prov:EVELIN FIELD MD 11/03/22 Metronidazole (Flagyl) 500 Mg Tab, 500 MG PO TID for 7 Days, #21 TAB Prov:EVELIN FIELD MD 11/03/22 Furosemide (Lasix) 20 Mg Tb, 1 TAB PO DAILY, #30 TAB 5 Refills Prov:EVELIN FIELD MD 11/03/22 Amlodipine Besylate (NORVASC TABLET) 5 Mg Tb, 5 MG PO DAILY for 30 Days, #30 TAB Prov:EVELIN FIELD MD 11/03/22 Reported Medications Levothyroxine Sodium (Levothyroxine Sodium) 137 Mcg Tab, 1 TAB PO DAILY 10/31/22 Atorvastatin Calcium (ATORVASTATIN CALCIUM) 40 Mg Tab, 1 TAB PO DAILY 10/31/22 Hctz (Hydrochlorothiazide) 25 Mg Tab, 1 TAB PO DAILY 10/31/22 Benazepril Hcl (Benazepril Hcl) 40 Mg Tab, 1 TAB PO DAILY 10/31/22 Carvedilol (Carvedilol) 6.25 Mg Tab, 2 PO BID 10/31/22 Information Source: Patient Mode of Arrival: Ambulatory Location: Right Extremity Location: Ankle, Foot Timing: Hours Prehospital treatment: None Severity: Mild Able to Move Extremity: Yes Bear Weight: Limited Pain: Mild Mechanism: Twisting Circumstances: Fall Onset of Symptoms: After Trauma Symptoms: Swelling, Pain DVT Risk Factors: NONE Associated signs and symptoms: Ankle pain, Foot pain Past Medical History PAST MEDICAL HISTORY: Cancer, CKF, DM, High Lipids, HTN Surgical History: Hysterectomy, Thyroidectomy LABORATORY ADMINISTRATIVE DIRECTOR History: No Pertinent LABORATORY ADMINISTRATIVE DIRECTOR History Family History Family History: Reviewed,noncontributory to illness Social History Smoker: Quit Greater Than 1 Year Alcohol: Denies ETOH Use Drugs: Denies Drug Use Lives In: Home Constitutional: denies: chills, diaphoresis, fatigue, fever, malaise, sweats, weakness, others EENTM: denies: blurred vision, double vision, ear bleeding, ear discharge, ear drainage, ear pain, ear ringing, eye pain, eye redness, hearing loss, mouth pain, mouth swelling, nasal discharge, nose bleeding, nose congestion, nose pain, photophobia, tearing, throat pain, throat swelling, voice changes, others Respiratory: denies: cough, hemoptysis, orthopnea, SOB at rest, shortness of breath, SOB with excertion, stridor, wheezing, others Cardiovascular: denies: chest pain, dizzy spells, diaphoresis, Dyspnea on exertion, edema, irregular heart beat, left arm pain, lightheadedness, palpitati ons, PND, syncope, others Gastrointestinal: denies: abdomen distended, abdominal pain, blood streaked bowels, constipated, diarrhea, dysphagia, difficulty swallowing, hematemesis, melena, nausea, poor appetite, poor fluid intake, rectal bleeding, rectal pain, vomiting, others Genitourinary: denies: abnormal vagina bleeding, burning, dyspareunia, dysuria, flank pain, frequency, hematuria, incontinence, pain, , vagina discharge, urgency, others Neurological: denies: dizziness, fainting, headache, left sided numbness, left sided weakness, numbness, paresthesia, pre-existing deficit, right sided numbness, right sided weakness, seizure, speech problems, tingling, tremors, weakness, others Musculoskeletal: reports: others (rt ankle/foot pain); denies: back pain, gout, joint pain, joint swelling, muscle pain, muscle stiffness, neck pain Integumetry: denies: bruises, change in color, change in hair/nails, dryness, laceration, lesions, lumps, rash, wounds, others Allergic/Immunocompromised: denies: Difficulty Healing, Frequent Infections, Hives, Itching, others Hematologic/Lymphatic: denies: anemia, blood clots, easy bleeding, easy bruising, swollen glands, others Endocrine: denies: excessive hunger, excessive sweating, excessive thirst, excessive urination, flushing, intolerance to cold, intolerance to heat, unexplained weight gain, unexplained weight loss, others Psychiatric: denies: anxiety, bipolar disorder, depression, hopeless, panic disorder, schizophrenia, sleepless, suicidal, others All Other Systems: Reviewed and Negative Physical Exam General Appearance: Moderate Distress (Due to foot and ankle pain concerns), Normal HEENT: Normal ENT Inspection, Pharynx Normal, TMs Normal Neck: Full Range of Motion, Non-Tender, Normal, Normal Inspection Respiratory: Chest Non-Tender, Lungs Clear, No Accessory Muscle Use, No Respiratory Distress, Normal Breath Sounds Cardiovascular: No Edema, No JVD, No Murmur, No Gallop, Normal Peripheral Pulses, Regular Rate/Rhythm Breast Exam: Deferred Gastrointestinal: No Organomegaly, Non Tender, No Pulsatile Mass, Normal Bowel Sounds, Soft Genitalia: Deferred Pelvic: Deferred Rectal: Deferred Extremities: Normal capillary refill, No pedal edema Musculoskeletal : Location: Right Extremity Location: Ankle, Foot Apperance: Swelling, Tenderness, Other (Diffuse tenderness to palpation throughout the lateral aspect of the right foot and ankle. Mild ecchymosis on the dorsal aspect of the foot. Patient bear weight but with difficulty.) Neurologic: Alert, barge engineer II-XII nml as Tested, No Motor Deficits, Normal Affect, Normal Mood, No Sensory Deficits Cerebellar Function: Normal Reflexes: Normal Skin: Dry, Normal Color, Warm Lymphatic: No Adenopathy Was a procedure done? Was a procedure done?: No Differential Diagnosis EXT Differential Diagnosis: Fracture, Sprain, Dislocation, Strain X-Ray, Labs, Meds, VS Vital Signs Date Time Temp Pulse Resp B/P (MAP) Pulse Ox O2 Delivery O2 Flow Rate FiO2 10/04/24 18:47 98.2 80 16 161/92 (115) 98 98.2 10/04/24 18:33 84 20 97 Room Air* 0 21 10/04/24 17:31 97.5 86 22 139/72 (94) 97 97.5 Current Medications Medications (Trade) Dose Ordered Sig/Deb Route Start Time Stop Time Status Last Admin Ibuprofen (Motrin Tablet) 600 mg ONCE ONCE PO 10/04/24 17:30 10/04/24 17:31 DC 10/04/24 18:28 X-Ray, Labs, Meds, VS Comment All studies performed the ED were evaluated by me personally. Imaging studies confirmed a 5th metatarsal fracture of the right foot. Patient was provided with a splint and crutches. Patient has been advised to follow up with the primary care provider in 5-7 days for evaluation and probable cast placement. Time of 1ST Reevaluation: 19:09 Reevaluation 1ST: Improved Consultation: PCP Patient Education/Counseling: Diagnosis, Treatment Family Education/Counseling: Diagnosis, Treatment, No Family Present Departure 1 Departure Time of Disposition: 19:10 Impression: Primary Impression: Fracture of fifth metatarsal bone of right foot Disposition: HOME / SELF CARE / HOMELESS Condition: Stable Additional Instructions: Advised patient utilize pain medication as needed for symptomatic relief. Patient should follow up with primary care provider in the next 5-7 days for re-evaluation and probable cast placement. e-Prescriptions Hydrocodone-Acetaminophen (Hydrocodone Bitartrate/AC 5-325 mg) 1 Tab Tab 1 TAB PO Q6HP PRN, #20 TAB Prov: DERECK GRAY PAC 10/04/24 Ibuprofen (Ibuprofen) 600 Mg Tab 1 TAB PO Q6HP PRN, #30 TAB Prov: DERECK GRAY PAC 10/04/24 Discharged With: Self, Friend Critical Care Note Critical Care Time?: No Stability Stability form required: No Heart Score Heart Score: Heart Score Response (Comments) Value History N/A 0 EKG N/A 0 Age N/A 0 Risk Factors N/A 0 Troponin N/A 0 Total 0 I personally scribed for DERECK GRAY PAC ([email or web address]) on 10/04/24 at 17:52. Electronically submitted by Michelle Salazar ([email or web address]). DERECK GRAY PAC Oct 04, 2024 17:52
[2024-10-04] MEDS: IBUPROFEN 600 MG TAB PO ONE (18:28)
[2024-10-04 18:33] VITALS: PULSE 84; RESP 20; O2SAT 97
--- NOTE | 2024-10-04 18:38 | DVH ---
EXAM: XY R FOOT 3 VIEW XRAY CLINICAL HISTORY: Twist/trauma COMPARISON: None TECHNIQUE: XY R FOOT 3 VIEW XRAY Findings/Impression: 3 views of the right foot. Mildly displaced fracture of the base of the 5th metatarsal. Mild soft tissue edema. There is no evidence of dislocation, blastic, or lytic lesions. No radiopaque foreign bodies. Moderate to marked atherosclerosis. Scattered soft tissue calcifications.
--- NOTE | 2024-10-04 18:57 | DVH ---
EXAM: XY R ANKLE 3 VIEW CLINICAL HISTORY: Twist/trauma COMPARISON: None TECHNIQUE: XY R ANKLE 3 VIEW Findings/Impression: 3 views of the right ankle. Mildly displaced fracture of the base of the 5th metatarsal. Mild soft tissue edema. There is no evidence of dislocation, blastic, or lytic lesions. No radiopaque foreign bodies. Moderate to marked atherosclerosis. Scattered soft tissue calcifications.
[2024-10-04] MEDS ORDERED: HYDR-4902 PO (19:11)
[2024-10-04] MEDS ORDERED: IBUP-1454 PO (19:11)
[2024-10-04 19:58] VITALS: BP 153/86; PULSE 74; RESP 18; TEMP 97.9; O2SAT 97
== END 2024-10-04 21:00 | disposition home or self-care (01) ==
LOC: ER 17:06
DX: S92.351A Displaced fracture of fifth metatarsal bone, right foot, initial encounter for closed fracture (principal); W18.39XA Other fall on same level, initial encounter; Y93.01 Activity, walking, marching and hiking; Y92.89 Other specified places as the place of occurrence of the external cause; Y99.8 Other external cause status; I11.0 Hypertensive heart disease with heart failure; I50.9 Heart failure, unspecified; E11.9 Type 2 diabetes mellitus without complications; Z79.899 Other long term (current) drug therapy; Z90.710 Acquired absence of both cervix and uterus; Z98.890 Other specified postprocedural states
CPT/HCPCS: 29515; 73610; 73630

== ENCOUNTER 2024-11-06 15:31 | Inpatient (IN) | payer MEDICAID ==
[~2024-11-06] VITALS: Ht 154.9 cm; Wt 92.8 kg
[~2024-11-06 15:31] MED LIST changes: +HYDR-4902 PO; +IBUP-1454 PO
--- NOTE | 2024-11-06 16:05 | ED.PDOC ---
Musculoskeletal HPI Comments HPI: 64 y/o F, presents to the ED for CC of foot pain. Patient relays, she was sent by her PCP () for possible admission d/t abnormal MRI, finding showing bone infection. Patient reports, that she had a previous fracture to her right foot which she is unaware if could have caused new onset of symptoms. Patient c omplains of current pain to her bilateral feet. Upon arrival to ED, patient is able to ambulate and bear weight completely onto both legs. No other symptoms or modifying factors present at this time. Vitals Temperature: Respiratory rate: SpO2: Heart rate: Blood pressure: Past Medical History:RIGHT FOOT FX, HTN, THYROID CANCER Past Surgical History: THYROIDECTOMY Social History: DENIES ALL HPI: Poor Historian. Sent by her PCP for admission to the hospital for abnormal MRI of left ankle showing cellulitis and osteomyelitis findings. Patient has history of diabetes. Denies any other acute symptoms. Past Medical History: Past Surgical History: REVIEW OF SYSTEMS: CONSTITUTIONAL: Denies acute: fever, diaphoresis, chills, generalized weakness. HEAD: Denies acute: headache, photophobia Eyes: Denies acute: Double vision, vision loss, eye pain, eye discharge. EARS: Denies acute: tinnitus, hearing loss, ear discharge, ear pain, THROAT: Denies acute: sore throat, swelling, difficulty swallowing , pain with swallowing, change in voice. NECK: Denies acute: neck pain, neck swelling, stiff neck. HEART: Denies acute : chest pain, palpitations, LUNGS: Denies acute: SOB, wheezing, cough, hemoptysis ABDOMEN: Denies acute: abdominal pain, Nausea, Vomiting, diarrhea, melena , hematemesis, hematochezia SKIN: Denies acute: rash, redness, lesions, itchiness. EXTREMITIES: Denies acute: calf pain, numbness, tingling, weakness, Denies acute: Low back pain. Neuro: Denies acute: focal neurological deficit, motor or sensory focal neurological deficit, tremors, seizure like activity, confusion, dizziness, change in mental status, loss of bowel or bladder function, cauda equina like symptoms. : Denies acute: dysuria, hematuria, flank pain, increase in urinary frequency. PSYCH: Denies acute: hallucination, suicidal ideation, homicidal ideation. FEMALE: Denies acute: abnormal vaginal bleeding, foul odor, unusual discharge. PHYSICAL EXAM: General: ---mild-----acute distress, awake and alert. Head: normocephalic, atraumatic. Neck: supple, trachea is midline, no swelling. Throat: Normal phonation. Eyes:, no erythema, no purulent discharge, no proptosis, no icterus. Heart: regular rate, regular rhythm, no significant murmur appreciated. Lungs: no apparent respiratory distress, Able to speak in full sentences. No wheezing, no rhonchi, no crackles. No stridors Clear to auscultation bilaterally. Abdomen: non tender to palpation, non distended, soft, no guarding, no rebound, + bowel sounds. Neuro: Awake, Alert, oriented to name, self, situation, follows commands GCS=15. Speech is normal. Skin: no petechia, no purpura, no cyanosis, non-pale, not jaundice. Lower extremities: --no - Pitting edema no deformity, no focal swelling, no calf TTP. Evaluation of the affected area of complaint.: Left foot and ankle no apparent deformity or swelling or erythema. Patient is neurovascularly intact in the affected extremity. No particular tenderness to palpation. Makes eye contact. moves all four extremities. Face: no apparent facial droop. Ambulating in the ED independently. ED COURSE: Time Seen by MD: 15:35 Primary Care Provider: UNKNOWN Reviewed Notes: Nurses Notes, Medications, Allergies Allergies: Coded Allergies: No Known Drug Allergy (Verified Allergy, Unknown, 10/31/22) Home Meds Active Scripts Hydrocodone-Acetaminophen (Hydrocodone Bitartrate/AC 5-325 mg) 1 Tab Tab, 1 TAB PO Q6HP PRN, #20 TAB Prov:DERECK GRAY PAC 10/04/24 Ibuprofen (Ibuprofen) 600 Mg Tab, 1 TAB PO Q6HP PRN, #30 TAB Prov:DERECK GRAY PAC 10/04/24 Nifedipine (Nifedipine ER) 30 Mg Tab, 30 MG PO DAILY for 30 Days, #30 TAB 3 Refills Prov:ELENA NELSON RESIDENT 10/16/23 Clonidine Hydrochloride (Clonidine Hcl) 0.1 Mg Tab, 1 TAB PO QPM, #30 TAB 2 Refills Prov:MCDONNELLFLAKODENZELAVE Louis PHYSICAL THERAPY ASSISTANT INSTRUCTOR 06/26/23 Carvedilol (Carvedilol) 12.5 Mg Tab, 1 TAB PO BID, #60 TAB 5 Refills Prov:MCDONNELLCINDY PHYSICAL THERAPY ASSISTANT INSTRUCTOR 06/25/23 Acetaminophen (Acetaminophen) 500 Mg Tab, 500 MG PO Q4HP PRN, #30 TAB Prov:ISAACDERECK Santino [facility] 05/02/23 Dextromethorphan-Guaifenesin (Mucinex Dm Maximum Streng) 1 Tab Tab, 1 TAB PO BID, #30 TAB Prov:ISAACDERECK HOOKER [facility] 05/02/23 Benzonatate (Benzonatate) 100 Mg Cap, 1 CAP PO TID, #20 CAP Prov:ISAACDERECK HOOKER [facility] 05/02/23 Loratadine (Claritin) 10 Mg Cap, 10 MG PO DAILY for 14 Days, #14 CAP Prov:DERECK GRAY [facility] 05/02/23 Hctz (Hydrochlorothiazide) 25 Mg Tab, 25 MG PO DAILY for 30 Days, #30 TAB Prov:EVELIN FIELD MD 11/03/22 Metronidazole (Flagyl) 500 Mg Tab, 500 MG PO TID for 7 Days, #21 TAB Prov:EVELIN FIELD MD 11/03/22 Furosemide (Lasix) 20 Mg Tb, 1 TAB PO DAILY, #30 TAB 5 Refills Prov:EVELIN FIELD MD 11/03/22 Amlodipine Besylate (NORVASC TABLET) 5 Mg Tb, 5 MG PO DAILY for 30 Days, #30 TAB Prov:EVELIN FIELD MD 11/03/22 Reported Medications Levothyroxine Sodium (Levothyroxine Sodium) 137 Mcg Tab, 1 TAB PO DAILY 10/31/22 Atorvastatin Calcium (ATORVASTATIN CALCIUM) 40 Mg Tab, 1 TAB PO DAILY 10/31/22 Hctz (Hydrochlorothiazide) 25 Mg Tab, 1 TAB PO DAILY 10/31/22 Benazepril Hcl (Benazepril Hcl) 40 Mg Tab, 1 TAB PO DAILY 10/31/22 Carvedilol (Carvedilol) 6.25 Mg Tab, 2 PO BID 10/31/22 Information Source: Patient Mode of Arrival: Ambulatory Location: Bilateral Extremity Location: Foot Timing: Minutes Prehospital treatment: None Severity: Moderate Able to Move Extremity: Yes Bear Weight: Fully Pain: Moderate Mechanism: Twisting Circumstances: Accident Onset of Symptoms: After Trauma Symptoms: Pain DVT Risk Factors: NONE Last Tetanus: Unknown Associated signs and symptoms: Ankle pain, Foot pain Was a procedure done? Was a procedure done?: No Differential Diagnosis EXT Differential Diagnosis: Cellulitis, CHF, Deep Vein Thrombosis, Compartment Syndrome, Fracture, Sprain, Dislocation, Laceration, Gout, DJD, Contusion, Septic, Neurovascular injury, Arthritis, Bursitis X-Ray, Labs, Meds, VS Vital Signs Date Time Temp Pulse Resp B/P (MAP) Pulse Ox O2 Delivery O2 Flow Rate FiO2 11/06/24 15:49 98.3 88 16 108/44 (65) 96 98.3 Lab Test 11/06/24 15:58 11/06/24 15:51 Range/Units White Blood Count 4.6 4.4-10.8 10^3/uL Red Blood Count 4.23 4.0-5.20 10^6/uL Hemoglobin 11.2 L 12.2-16.2 g/dL Hematocrit 34.0 L 36.0-46.0 % Mean Corpuscular Volume 80.4 80.0-100.0 fL Mean Corpuscular Hemoglobin 26.4 L 28.0-32.0 pg Mean Corpuscular Hemoglobin Concent 32.8 32.0-36.0 g/dL Red Cell Distribution Width 16.4 H 11.8-14.3 % Platelet Count 285 140-450 10^3/uL Mean Platelet Volume 8.2 6.9-10.8 fL Neutrophils (%) (Auto) 63.7 37.0-80.0 % Lymphocytes (%) (Auto) 25.4 10.0-50.0 % Monocytes (%) (Auto) 7.2 0.0-12.0 % Eosinophils (%) (Auto) 2.3 0.0-7.0 % Basophils (%) (Auto) 1.4 0.0-2.0 % Neutrophils # (Auto) 3.0 1.6-8.6 10 ^3/uL Lymphocytes # (Auto) 1.2 0.4-5.4 10 ^3/uL Monocytes # (Auto) 0.3 0-1.3 10 ^3/uL Eosinophils # (Auto) 0.1 0-0.8 10 ^3/uL Basophils # (Auto) 0.1 0-0.2 10 ^3/uL Nucleated Red Blood Cells 0.1 % Erythrocyte Sedimentation Rate 23 H 0-20 mm/hr Sodium Level 142 136-145 mmol/L Potassium Level 4.4 3.5-5.1 mmol/L Chloride Level 113 H 98-107 mmol/L Carbon Dioxide Level 19 L 20-31 mmol/L Anion Gap 10 5-15 Blood Urea Nitrogen 28 H 9-23 mg/dL Creatinine 1.35 H 0.550-1.02 mg/dL Glomerular Filtration Rate Calc 44 >90 mL/min BUN/Creatinine Ratio 20.7 H 10.0-20.0 Serum Glucose 289 H 74-106 mg/dL Lactic Acid Level 1.9 0.4-2.0 mmol/L Calcium Level 9.4 8.7-10.4 mg/dL Total Bilirubin 0.3 0.2-1.0 mg/dL Aspartate Amino Transferase (AST) 14 13-40 U/L Alanine Aminotransferase (ALT) 19 7-40 U/L Alkaline Phosphatase 58 46-116 U/L C-Reactive Protein High Sensitivity 0.02 <1.0 mg/dL Total Protein 6.7 5.7-8.2 g/dL Albumin 4.2 3.2-4.8 g/dL POC Glucose 262 H 70-106 mg/dl Time of 1ST Reevaluation: 16:05 Reevaluation 1ST: Unchanged Patient Education/Counseling: Diagnosis, Treatment Family Education/Counseling: No Family Present Comments Case was discussed with the PCP who ordered the MRI Dr. Jeffery. He recommends admission to the hospital given the MRI findings. Patient presented with the above HPI.--ankle pain----workup was initiated. patient was found with the above mentioned diagnosis. the following medications were ordered: please refer to order lists of meds and tests obtained by myself Dr. Barillas. Patient ED course and VS have been stabilized. Patient has been reassessed in the ED and remained in a stable condition. Pertinent incidental findings were discussed with the patient and/or family. Patient/family voices understanding and is agreeable with plan. Patient has been observed in the ED adequate length of time to insure improvement/stability. Escalation of care considered: Consideration of escalation to observation or admission Patient was ADMITTED to the medicine team for further evaluation and treatment of their presentation. All the reports of any imaging studies that were ordered by myself were reviewed by myself. Departure 1 Departure Time of Disposition: 16:23 Impression: Primary Impression: Ankle osteomyelitis, left Disposition: ADMITTED INPATIENT Admit to: Tele Condition: Guarded Discharged With: Self Critical Care Note Critical Care Time?: No I personally scribed for ROSITA BARILLAS DO ([email or web address]) on 11/06/24 at 16:05. Electronically submitted by Melissa Javier ([email or web address]). ROSITA BARILLAS DO November 06, 2024 16:05
[2024-11-06 16:15] LABS: Basophils # (auto) 0.1 10 ^3/uL (0-0.2); Basophils % (auto) 1.4 % (0.0-2.0); Eosinophils # (auto) 0.1 10 ^3/uL (0-0.8); Eosinophils % (auto) 2.3 % (0.0-7.0); Hemoglobin 11.2 g/dL (12.2-16.2); Lymphocytes # (auto) 1.2 10 ^3/uL (0.4-5.4); Lymphocytes % (auto) 25.4 % (10.0-50.0); Mean Corpuscular Hemoglobin 26.4 pg (28.0-32.0); Mean Corpuscular Hgb Conc. 32.8 g/dL (32.0-36.0); Mean Corpuscular Volume 80.4 fL (80.0-100.0); Monocytes # (auto) 0.3 10 ^3/uL (0-1.3); Monocytes % (auto) 7.2 % (0.0-12.0); Neutrophils % (auto) 63.7 % (37.0-80.0); Nucleated Red Blood Cells % 0.1 %; Platelet Count (auto) 285 10^3/uL (140-450); Red Blood Cells 4.23 10^6/uL (4.0-5.20); Red Cell Distribution Width 16.4 % (11.8-14.3); White Blood Cell 4.6 10^3/uL (4.4-10.8)
--- NOTE | 2024-11-06 16:34 | DVHHP2 ---
History of Present Illness Reason for Visit: Bilateral foot pain History of Present Illness 64-year-old female past medical history diabetes hypertension hyperlipidemia left ankle sprain osteoporosis thyroid cancer where she is in remission thyroidectomy tendon reconstruction chief complaint patient bilateral foot and ankle pain. Patient states she seen her primary doctor yeni he had order outpatient MRI that redness he had called her and told her that she has a bone infection needs to come to the ER for evaluation. Patient had showed provider her rednet results but there was imaging but no dictated results. According to patient she had tripped and fall in October 04, 2024 I evaluated x-ray at that time and it showed displaced fracture of the base fifth metatarsal bone with soft tissue edema. Patient states she has a lot of pain when she is walking on her foot there was no open wound no drainage patient denies any fever no calf pain or leg swelling she does complain of some right leg numbness from her knee down to her foot but there was no swelling to the leg. No chest pain no shortness with the breath when evaluating patient's labs and imaging CBC was unremarkable CMP was unremarkable only found a glucose elevated at 262 did evaluate patient's foot there was no open wounds noted. We will admit and provide IV antibiotics until results of the Radiology net is retrieved by the secretary office clerk. We will also admit and ask for Podiatry evaluation Past Medical History See HPI above Past Surgical History See HPI above Family History Reviewed, non-contributory to the management of this case. Past Social History The patient lives at home, denies smoking, alcohol or illicit drugs abuse. Review of Systems Constitutional: No: Fever, Chills, Sweats, Weakness, Malaise, Other Eyes: No: Pain, Vision change, Conjunctivae inflammation, Eyelid inflammation, Other, Redness ENT: No: Ear pain, Ear discharge, Nose pain, Nose discharge, Nose congestion, Mouth pain, Mouth swelling, Throat pain, Throat swelling, Other Respiratory: No: Cough, Dry, Shortness of breath, SOB with excertion, Wheezing, Hemoptysis, Pleuritic Pain, Sputum, Wheezing, Other Cardiovascular: No: Chest Pain, Palpitations, Orthopnea, Paroxysmal Noc. Dyspnea, Edema, Lt Headedness, Other Gastrointestinal: No: Nausea, Vomiting, Abdominal Pain, Diarrhea, Constipation, Melena, Hematochezia, Other Genitourinary: No Dysuria, No Frequency, No Incontinence, No Hematuria, No Retention, No Other Musculoskeletal: leg pain, foot pain; No: other, neck pain, shoulder pain, arm pain, back pain, hand pain Skin: No: Rash, Lesions, Jaundice, Bruising, Other Neurological: No: Weakness, Numbness, Incoordination, Change in speech, Confusion, Seizures, Other Allergies: Coded Allergies: No Known Drug Allergy (Verified Allergy, Unknown, 10/31/22) Exam Vital Signs Vital Signs Date Time Temp Pulse Resp B/P (MAP) Pulse Ox O2 Delivery O2 Flow Rate FiO2 11/06/24 15:49 98.3 88 16 108/44 (65) 96 98.3 General Appearance: Alert, Oriented X3, Cooperative, No acute distress HEENT: Atraumatic, PERRLA, EOMI, Mucous membr. moist/pink Respiratory: Clear to auscultation, Normal air movement Cardiovascular: Regular rate, Normal S1, Normal S2, No murmurs Abdominal: Normal bowel sounds, Soft, No tenderness, No hepatospenomegaly, No masses Extremities: No clubbing, No cyanosis, No edema, Normal pulses, No tenderness/swelling, Other (bilateral foot no open wound some swelling at ankles no drainage compartment soft, nvi full rom ) Skin: No rashes, No breakdown, No significant lesion Neuro: Normal gait, Normal speech, Strength at 5/5 X4 ext, Normal tone, Sensation intact Psych/Mental Status: Mental status NL, Mood NL Labs/Xrays X-ray of the foot right foot with fifth metatarsal bone fracture displaced reviewed imaging from October 04, 2024 I reviewed labs, imaging CT scan abdomen pelvis, EKG and all diagnostic studies on this patient from ED records and the medical chart Labs Test 11/06/24 15:58 11/06/24 15:51 Range/Units White Blood Count 4.6 4.4-10.8 10^3/uL Red Blood Count 4.23 4.0-5.20 10^6/uL Hemoglobin 11.2 L 12.2-16.2 g/dL Hematocrit 34.0 L 36.0-46.0 % Mean Corpuscular Volume 80.4 80.0-100.0 fL Mean Corpuscular Hemoglobin 26.4 L 28.0-32.0 pg Mean Corpuscular Hemoglobin Concent 32.8 32.0-36.0 g/dL Red Cell Distribution Width 16.4 H 11.8-14.3 % Platelet Count 285 140-450 10^3/uL Mean Platelet Volume 8.2 6.9-10.8 fL Neutrophils (%) (Auto) 63.7 37.0-80.0 % Lymphocytes (%) (Auto) 25.4 10.0-50.0 % Monocytes (%) (Auto) 7.2 0.0-12.0 % Eosinophils (%) (Auto) 2.3 0.0-7.0 % Basophils (%) (Auto) 1.4 0.0-2.0 % Neutrophils # (Auto) 3.0 1.6-8.6 10 ^3/uL Lymphocytes # (Auto) 1.2 0.4-5.4 10 ^3/uL Monocytes # (Auto) 0.3 0-1.3 10 ^3/uL Eosinophils # (Auto) 0.1 0-0.8 10 ^3/uL Basophils # (Auto) 0.1 0-0.2 10 ^3/uL Nucleated Red Blood Cells 0.1 % POC Glucose 262 H 70-106 mg/dl Assessment/Plan Assessment/Plan acute right foot infection r/o om mri foot outside imaging showed om despite no wounds ordered podiatry referral fu results ordered vanco and zosyn for now ordered podiatry consult fu results ordered morphine as needed for pain ordered arterial study fu results ordered us doppler fu results ordered esr and crp fu results chronic problems htn cont home medication thyroid cancer thyroidectomy dm ISS htn hld fen/ppx diet hl ivf scd no gi ppx since no hx of gerds or gi bleed plan admit to medicine podiatry consult fu results Plan discussed with: Patient Date of Service: November 06, 2024 Billing Provider: JOAO CLARK DNP Common Visit Codes: [id number] INP/OBS CARE (HIGH) JOAO CLARK DNP November 06, 2024 16:34
[2024-11-06 16:36] LABS: Alanine Aminotransferase 19 U/L (7-40); Albumin 4.2 g/dL (3.2-4.8); Alkaline Phosphatase 58 U/L (46-116); Anion Gap 10 (5-15); Aspartate Aminotransferase 14 U/L (13-40); BUN/Creatinine Ratio 20.7 (10.0-20.0); CRP High Sensitivity 0.02 mg/dL (<1.0); Calcium 9.4 mg/dL (8.7-10.4); Potassium 4.4 mmol/L (3.5-5.1); Sodium 142 mmol/L (136-145); Total Protein 6.7 g/dL (5.7-8.2)
[2024-11-06 16:37] LABS: Bilirubin, Total 0.3 mg/dL (0.2-1.0); Blood Urea Nitrogen 28 mg/dL (9-23); Carbon Dioxide 19 mmol/L (20-31); Chloride 113 mmol/L (98-107); Glucose 289 mg/dL (74-106)
[2024-11-06 16:49] LABS: Erythrocyte Sedimentation Rate 23 mm/hr (0-20)
[2024-11-06] MEDS ORDERED: SODIUM CHLORIDE 0.9% 1,000 ML IV SCH (17:15)
[2024-11-06] MEDS ORDERED: VANCOMYCIN PER PHARMACY 0 MG IV SCH (17:15)
[2024-11-06] MEDS ORDERED: DEXTROSE (50%) 50ML SYRG IV PRN (17:15)
[2024-11-06] MEDS ORDERED: DOCUSATE SOD 100 MG CAP PO PRN (17:15)
[2024-11-06] MEDS ORDERED: NITROGLYCERIN 0.4 MG SL TAB SL PRN (17:15)
[2024-11-06 17:25] VITALS: PULSE 81; RESP 13; O2SAT 97
--- NOTE | 2024-11-06 18:45 | DVH ---
Bilateral lower extremity venous duplex Clinical History: eval for dvt Comparison: None Technique: Duplex Doppler evaluation of the deep venous systems of both lower extremities from the common femora l veins to the popliteal veins including color Doppler and spectral/pulsed waveform analysis was perf ormed. Findings: RIGHT SIDE: The common femoral vein demonstrates appropriate compressibility and waveform variability. There is compressibility/patency of the great saphenous vein at the proximal thigh. The femoral vein demonstrates appropriate compressibility and waveform variability. The deep femoral vein demonstrates appropriate compressibility and waveform variability. The popliteal vein demonstrates appropriate compressibility and waveform variability. There is normal compressibility at the tibioperoneal trunk. LEFT SIDE: The common femoral vein demonstrates appropriate compressibility and waveform variability. There is compressibility/patency of the great saphenous vein at the proximal thigh. The femoral vein demonstrates appropriate compressibility and waveform variability. The deep femoral vein demonstrates appropriate compressibility and waveform variability. The popliteal vein demonstrates appropriate compressibility and waveform variability. There is normal compressibility at the tibioperoneal trunk. Impression: 1. No right or left femoropopliteal venous thrombosis.
[2024-11-06 18:53] VITALS: BP 153/76; PULSE 75; RESP 14; TEMP 97.7; O2SAT 98
--- NOTE | 2024-11-06 19:01 | DVH ---
BILATERAL Lower Extremity Arterial Duplex Date: 11/06/2024 06:13 PM Clinical History: eval for vascualar occlusion Comparison: None Technique: Ultrasound bilateral lower extremity arterial duplex study Duplex Doppler evaluation including color Doppler and spectral/pulsed waveform analysis of the lower extremity arteries was performed. Finding: RIGHT: Peak systolic velocities are as follows: JEWEL DIAMETER GAUGER 138 cm/s triphasic Deep femoral 74 cm/s biphasic SFA proximal 113 cm/s triphasic SFA mid-portion 145 cm/s triphasic SFA distal 185 cm/s triphasic Popliteal 92 cm/s triphasic Posterior tibial 113 cm/s triphasic Dorsalis pedis 101 cm/s triphasic The waveforms are triphasic throughout right lower extremity except for the deep femoral artery which was Biphasic. LEFT: Peak systolic velocities are as follows: JEWEL DIAMETER GAUGER 137 cm/s triphasic Deep femoral 126 cm/s biphasic SFA proximal 109 cm/s triphasic SFA mid-portion 129 cm/s triphasic SFA distal 133 cm/s triphasic Popliteal 64 cm/s triphasic Posterior tibial 77 cm/s triphasic Dorsalis pedis 100 cm/s triphasic The waveforms are triphasic throughout except of the deep femoral artery which was Biphasic. REFERENCE VALUES, [facility] ([facility]) vascular Imaging Lab Criteria: Peak systolic velocity ranges (in cm/sec) are as follows: <150 cm/s - <20 % stenosis 150-200 cm/s - 20-49% stenosis 200-300 cm/s - 50-75% stenosis >300 cm/s -> 75% stenosis IMPRESSION: 1. There is no evidence for peripheral vascular insufficiency in the right lower extremity. 2. There is no evidence for peripheral vascular insufficiency in the left lower extremity. 3. No significant focal stenosis is identified.
[2024-11-06] MEDS: cloNIDine HCL 0.1 MG TAB PO SCH (21:13)
[2024-11-06] MEDS: ATORVASTATIN 20 MG TAB PO SCH (21:14)
[2024-11-06] MEDS: HYDROcodone-ACET 5/325MG TAB PO PRN (21:15)
[2024-11-06] MEDS: ENOXAPARIN SOD 40 MG/0.4 ML SYRINGE SC SCH (21:15)
[2024-11-06] MEDS: VANCOMYCIN 1.25GM/250ML 250 ML IV ONE (21:51)
[2024-11-06] MEDS: ACCU-CHEK COMFORT CURVE STRIP VI SCH (22:00)
[2024-11-06] MEDS: InsuLIN REG 1unit/0.01ml Soln (100units/ml) SC SCH (22:56)
[2024-11-06] MEDS: PIPERACILLIN-TAZOB 3.375GM 100 ML IV ONE (23:56)
[2024-11-07 01:41] VITALS: BP 134/63; PULSE 68; RESP 17; TEMP 97.4; O2SAT 99
[2024-11-07 05:00] VITALS: BP 149/68; PULSE 73; RESP 17; TEMP 97.4; O2SAT 98
[2024-11-07] MEDS: LEVOTHYROXINE SODIUM 50 MCG TAB PO SCH (05:31)
[2024-11-07] MEDS: InsuLIN REG 1unit/0.01ml Soln (100units/ml) SC SCH (05:34)
[2024-11-07] MEDS: PIPERACILLIN-TAZOB 3.375GM 100 ML IV SCH (05:36)
[2024-11-07 08:24] LABS: Basophils # (auto) 0 10 ^3/uL (0-0.2); Basophils % (auto) 1.2 % (0.0-2.0); Eosinophils # (auto) 0.1 10 ^3/uL (0-0.8); Eosinophils % (auto) 3.6 % (0.0-7.0); Hematocrit 31.7 % (36.0-46.0); Hemoglobin 10.7 g/dL (12.2-16.2); Lymphocytes # (auto) 0.9 10 ^3/uL (0.4-5.4); Mean Corpuscular Hgb Conc. 33.6 g/dL (32.0-36.0); Mean Corpuscular Volume 80.1 fL (80.0-100.0); Monocytes # (auto) 0.3 10 ^3/uL (0-1.3); Monocytes % (auto) 9.2 % (0.0-12.0); Nucleated Red Blood Cells % 0.1 %; Platelet Count (auto) 240 10^3/uL (140-450); Red Blood Cells 3.96 10^6/uL (4.0-5.20); Red Cell Distribution Width 16.3 % (11.8-14.3); White Blood Cell 3.5 10^3/uL (4.4-10.8)
[2024-11-07 08:45] LABS: Alanine Aminotransferase 15 U/L (7-40); Albumin 3.8 g/dL (3.2-4.8); Anion Gap 6 (5-15); Aspartate Aminotransferase 14 U/L (13-40); BUN/Creatinine Ratio 22.4 (10.0-20.0); Calcium 8.9 mg/dL (8.7-10.4); Carbon Dioxide 23 mmol/L (20-31); Potassium 4.4 mmol/L (3.5-5.1); Sodium 142 mmol/L (136-145); Total Protein 6.1 g/dL (5.7-8.2)
[2024-11-07 08:46] LABS: Alkaline Phosphatase 42 U/L (46-116); Bilirubin, Total 0.3 mg/dL (0.2-1.0); Blood Urea Nitrogen 24 mg/dL (9-23); Chloride 113 mmol/L (98-107); Glucose 106 mg/dL (74-106)
[2024-11-07 09:00] VITALS: BP 151/79; PULSE 71; RESP 16; TEMP 97.9; O2SAT 98
[2024-11-07] MEDS: NIFEdipine ER 30 MG TAB PO SCH (10:14)
[2024-11-07] MEDS: hydroCHLOROthiazide 25 MG TAB PO SCH (10:15)
[2024-11-07] MEDS: FUROSEMIDE 20 MG TAB PO SCH (10:15)
[2024-11-07] MEDS: amLODIPine BESYLATE 5 MG TAB PO SCH (10:15)
[2024-11-07] MEDS: ONDANSETRON HCL 4 MG/2 ML VIAL IV PRN (10:22)
[2024-11-07 13:00] VITALS: BP 188/87; PULSE 74; RESP 16; TEMP 98.1; O2SAT 98
--- NOTE | 2024-11-07 13:55 | DVHINCON2 ---
Date Seen: November 07, 2024 Reason for Consultation Right foot wound History of Present Illness 64-year-old female past medical history diabetes hypertension hyperlipidemia left ankle sprain osteoporosis thyroid cancer where she is in remission thyroidectomy tendon reconstruction chief complaint patient bilateral foot and ankle pain. Patient states she seen her primary doctor yeni he had order outpatient MRI that redness he had called her and told her that she has a bone infection needs to come to the ER for evaluation. Patient had showed provider her rednet results but there was imaging but no dictated results. According to patient she had tripped and fall in October 04, 2024 I evaluated x-ray at that time and it showed displaced fracture of the base fifth metatarsal bone with soft tissue edema. Patient states she has a lot of pain when she is walking on her foot there was no open wound no drainage patient denies any fever no calf pa in or leg swelling she does complain of some right leg numbness from her knee down to her foot but there was no swelling to the leg. No chest pain no shortness with the breath when evaluating patient's labs and imaging CBC was unremarkable CMP was unremarkable only found a glucose elevated at 262 did evaluate patient's foot there was no open wounds noted. We will admit and provide IV antibiotics until results of the Radiology net is retrieved by the paralegal legal secretary. We will also admit and ask for Podiatry evaluation Past Medical History See H&P Past Surgical History See H&P Family History: Cardiovascular disease G8 FATHER Cerebrovascular accident (CVA) G8 MOTHER G8 FATHER Diabetes mellitus G8 MOTHER G8 FATHER FH: heart attack G8 FATHER Hypertension G8 MOTHER G8 FATHER Ischemic heart disease Allergies: Coded Allergies: No Known Drug Allergy (Verified Allergy, Unknown, 10/31/22) Home Meds Active Scripts Hydrocodone-Acetaminophen (Hydrocodone Bitartrate/AC 5-325 mg) 1 Tab Tab, 1 TAB PO Q6HP PRN, #20 TAB Prov:DERECK GRAY PAC 10/04/24 Ibuprofen (Ibuprofen) 600 Mg Tab, 1 TAB PO Q6HP PRN, #30 TAB Prov:DERECK GRAY PAC 10/04/24 Nifedipine (Nifedipine ER) 30 Mg Tab, 30 MG PO DAILY for 30 Days, #30 TAB 3 Refills Prov:ELENA NELSON RESIDENT 10/16/23 Clonidine Hydrochloride (Clonidine Hcl) 0.1 Mg Tab, 1 TAB PO QPM, #30 TAB 2 Refills Prov:CINDY MCDONNELL BREAKDOWN WORKER 06/26/23 Carvedilol (Carvedilol) 12.5 Mg Tab, 1 TAB PO BID, #60 TAB 5 Refills Prov:CINDY MCDONNELL BREAKDOWN WORKER 06/25/23 Acetaminophen (Acetaminophen) 500 Mg Tab, 500 MG PO Q4HP PRN, #30 TAB Prov:ISAACDERECK De [facility] 05/02/23 Dextromethorphan-Guaifenesin (Mucinex Dm Maximum Streng) 1 Tab Tab, 1 TAB PO BID, #30 TAB Prov:ISAAC,DERECK De [facility] 05/02/23 Benzonatate (Benzonatate) 100 Mg Cap, 1 CAP PO TID, #20 CAP Prov:ISAAC,DERECK De [facility] 05/02/23 Loratadine (Claritin) 10 Mg Cap, 10 MG PO DAILY for 14 Days, #14 CAP Prov:ISAAC,DERECK De [facility] 05/02/23 Hctz (Hydrochlorothiazide) 25 Mg Tab, 25 MG PO DAILY for 30 Days, #30 TAB Prov:EVELIN FIELD MD 11/03/22 Metronidazole (Flagyl) 500 Mg Tab, 500 MG PO TID for 7 Days, #21 TAB Prov:EVELIN FIELD MD 11/03/22 Furosemide (Lasix) 20 Mg Tb, 1 TAB PO DAILY, #30 TAB 5 Refills Prov:EVELIN FIELD MD 11/03/22 Amlodipine Besylate (NORVASC TABLET) 5 Mg Tb, 5 MG PO DAILY for 30 Days, #30 TAB Prov:EVELIN FIELD MD 11/03/22 Reported Medications Levothyroxine Sodium (Levothyroxine Sodium) 137 Mcg Tab, 1 TAB PO DAILY 10/31/22 Atorvastatin Calcium (ATORVASTATIN CALCIUM) 40 Mg Tab, 1 TAB PO DAILY 10/31/22 Hctz (Hydrochlorothiazide) 25 Mg Tab, 1 TAB PO DAILY 10/31/22 Benazepril Hcl (Benazepril Hcl) 40 Mg Tab, 1 TAB PO DAILY 10/31/22 Carvedilol (Carvedilol) 6.25 Mg Tab, 2 PO BID 10/31/22 Current Medications Current Medications Medications (Trade) Dose Ordered Sig/Deb Route PRN Reason Start Time Stop Time Status Last Admin Vancomycin HCl 0 ml @ 0 mls/hr UD IV 11/06/24 17:15 Piperacillin Sod/ Tazobactam Sod 100 ml @ 25 mls/hr Q6HR IV 11/07/24 00:00 11/07/24 12:15 Diagnostic Test (Pha) (Accu-Chek Comfort Curve T) 1 strip ACHS 11/06/24 22:00 11/07/24 11:30 Insulin Human Regular (InsuLIN R) HS SC 11/06/24 22:00 11/06/24 22:56 Insulin Human Regular (InsuLIN R) AC SC 11/07/24 07:00 11/07/24 12:19 Dextrose 50 ml UD PRN IV Blood Sugar LESS THAN 60 11/06/24 17:15 Sodium Chloride 1,000 ml @ 120 mls/hr Q8H20M IV 11/06/24 17:15 11/06/24 17:28 DC Ondansetron HCl (Zofran) 4 mg Q4HP PRN IV NAUSEA / VOMITING 11/06/24 17:15 11/07/24 10:22 Docusate Sodium (Colace Capsule) 100 mg BIDPRN PRN PO FOR CONSTIPATION 11/06/24 17:15 Enoxaparin Sodium (Lovenox) 40 mg DAILY SC 11/06/24 17:15 11/07/24 10:16 Nitroglycerin (Ntrostat Sublingual) 0.4 mg Q5MINP PRN SL FOR CHEST PAIN 11/06/24 17:15 Amlodipine Besylate (Norvasc Tablet) 5 mg DAILY PO 11/07/24 10:00 11/07/24 10:15 Clonidine HCl (Catapres Tablet) 0.1 mg QPM PO 11/06/24 18:00 11/06/24 21:13 Furosemide (Lasix Tablet) 20 mg DAILY PO 11/07/24 10:00 11/07/24 10:15 Hydrochlorothiazide (hydroCHLOROthiazide TABLET) 25 mg DAILY PO 11/07/24 10:00 11/07/24 10:15 Nifedipine (Procardia Xl (Time-Release)) 30 mg DAILY PO 11/07/24 10:00 11/07/24 10:14 Atorvastatin Calcium (Lipitor) 40 mg HS PO 11/06/24 22:00 11/06/24 21:14 Levothyroxine Sodium (Synthroid Tablet) 150 mcg DAILY@0700 PO 11/07/24 07:00 11/07/24 05:31 Acetaminophen/ Hydrocodone Bitart (Vesta 5/325MG Tab) 1 tab Q4HPRN PRN PO MODERATE PAIN (4-6 PAIN SCALE) 11/06/24 21:00 11/06/24 21:15 Vital Signs Vital Signs Date Time Temp Pulse Resp B/P (MAP) Pulse Ox O2 Delivery O2 Flow Rate FiO2 11/07/24 10:15 151/79 11/07/24 09:00 97.9 71 16 98 97.9 11/07/24 08:00 Room Air* 0 21 Physical Exam Dermatological: Swelling and ecchymosis present over the foot No open wounds noted No gross deformity or visible displacement Vascular: Dorsalis pedis and posterior tibial pulses are 2+ bilaterally Capillary refill is <2 seconds Skin temperature is warm bilaterally Neurologic: Protective sensation intact to 10g monofilament Vibration sensation normal Musculoskeletal: Tenderness localized over Right 5th metatarsal base Pain reproduced with direct palpation and compression Active and passive range of motion limited due to pain Patient unable to fully weight bear on the affected side Labs/Diagnostic Data Labs Test 11/07/24 07:47 11/07/24 05:33 11/06/24 15:58 Range/Units White Blood Count 3.5 L 4.4-10.8 10^3/uL Red Blood Count 3.96 L 4.0-5.20 10^6/uL Hemoglobin 10.7 L 12.2-16.2 g/dL Hematocrit 31.7 L 36.0-46.0 % Mean Corpuscular Volume 80.1 80.0-100.0 fL Mean Corpuscular Hemoglobin 27.0 L 28.0-32.0 pg Mean Corpuscular Hemoglobin Concent 33.6 32.0-36.0 g/dL Red Cell Distribution Width 16.3 H 11.8-14.3 % Platelet Count 240 140-450 10^3/uL Mean Platelet Volume 8.0 6.9-10.8 fL Neutrophils (%) (Auto) 59.0 37.0-80.0 % Lymphocytes (%) (Auto) 27.0 10.0-50.0 % Monocytes (%) (Auto) 9.2 0.0-12.0 % Eosinophils (%) (Auto) 3.6 0.0-7.0 % Basophils (%) (Auto) 1.2 0.0-2.0 % Neutrophils # (Auto) 2.0 1.6-8.6 10 ^3/uL Lymphocytes # (Auto) 0.9 0.4-5.4 10 ^3/uL Monocytes # (Auto) 0.3 0-1.3 10 ^3/uL Eosinophils # (Auto) 0.1 0-0.8 10 ^3/uL Basophils # (Auto) 0 0-0.2 10 ^3/uL Nucleated Red Blood Cells 0.1 % Sodium Level 142 136-145 mmol/L Potassium Level 4.4 3.5-5.1 mmol/L Chloride Level 113 H 98-107 mmol/L Carbon Dioxide Level 23 20-31 mmol/L Anion Gap 6 5-15 Blood Urea Nitrogen 24 H 9-23 mg/dL Creatinine 1.07 H 0.550-1.02 mg/dL Glomerular Filtration Rate Calc 58 >90 mL/min BUN/Creatinine Ratio 22.4 H 10.0-20.0 Serum Glucose 106 74-106 mg/dL Calcium Level 8.9 8.7-10.4 mg/dL Total Bilirubin 0.3 0.2-1.0 mg/dL Aspartate Amino Transferase (AST) 14 13-40 U/L Alanine Aminotransferase (ALT) 15 7-40 U/L Alkaline Phosphatase 42 L 46-116 U/L Total Protein 6.1 5.7-8.2 g/dL Albumin 3.8 3.2-4.8 g/dL Random Vancomycin Level 18.1 H 5-10 ug/mL POC Glucose 71 70-106 mg/dl Erythrocyte Sedimentation Rate 23 H 0-20 mm/hr Lactic Acid Level 1.9 0.4-2.0 mmol/L C-Reactive Protein High Sensitivity 0.02 <1.0 mg/dL Problems(with codes): (1) Gastroenteritis (2) Hypoglycemia (3) Pericardial effusion (4) Abdominal pain (5) Viral illness (6) Hypertension (7) Acute coronary syndrome (8) Acute myocardial ischemia (9) Fracture of fifth metatarsal bone of right foot (10) Ankle osteomyelitis, left Plan/Recommendation ASSESSMENT: Patient is a 64-year-old seen on the floor for a right foot 5th metatarsal fracture PLAN: X-ray of the foot and ankle obtained to confirm fracture and assessed displacement discussed the MRI showed radiolucency due to the fracture not due to osteomyelitis no bone infection at this point Reviewed imaging which showed Fracture appears to be stable Immobilization initiated with a cam boot Patient can weight bear as tolerated with crutches Ice and elevate to reduce swelling Reviewed signs of worsening pain and numbness Continue immobilization until follow up All questions were answered, and concerns addressed to the patients satisfaction. Patient is to contact the clinic should any concerns or questions arise. Patient understands that if any questions or concerns arise prior to the next appointment, I should be contacted immediately. FOLLOW-UP: RTC in 4 weeks for re-evaluation with repeat x-rays REQUEST: None DISPENSE: cam boot Plan discussed with: Patient Date of Service: November 07, 2024 Billing Provider: KARINE HURLEY DPM Common Visit Codes: CONSULT ONLY Consultation Codes: [id number] CONSULT <80MIN KARINE HURLEY DPM November 07, 2024 13:55
[2024-11-07] MEDS: VANCOMYCIN 500mg/100mL 100 ML IV ONE (17:24)
--- NOTE | 2024-11-07 18:54 | DVHPN2 ---
Subjective in bed resting Changes from previous H/P or p: No Changes Eyes: No Pain, No Vision change, No Conjunctivae inflammation, No Eyelid inflammation, No Other, No Redness ENT: No Ear pain, No Ear discharge, No Nose pain, No Nose discharge, No Nose congestion, No Mouth pain, No Mouth swelling, No Throat pain, No Throat swelling, No Other Cardiovascular: No Chest Pain, No Palpitations, No Orthopnea, No Paroxysmal Noc. Dyspnea, No Edema, No Lt Headedness, No Other Respiratory: No Cough, No Dry, No Shortness of breath, No SOB with excertion, No Wheezing, No Hemoptysis, No Pleuritic Pain, No Sputum, No Other Gastrointestinal: No Nausea, No Vomiting, No Abdominal Pain, No Diarrhea, No Constipation, No Melena, No Hematochezia, No Other Genitourinary: No Dysuria, No Frequency, No Incontinence, No Hematuria, No Retention, No Other Musculoskeletal: leg pain, foot pain Skin: No Rash, No Lesions, No Jaundice, No Bruising, No Other Objective Vitals Vital Signs Date Time Temp Pulse Resp B/P (MAP) Pulse Ox O2 Delivery O2 Flow Rate FiO2 11/07/24 18:17 145/75 11/07/24 13:00 98.1 74 16 98 98.1 11/07/24 08:00 Room Air* 0 21 Intake/Output Intake and Output 11/07/24 07:00 Intake Total 250 ml Balance 250 ml Intake Oral 250 ml # Voids 2 General Appearance: Alert, Oriented X3 Lungs: Clear to auscultation Cardiovascular: Regular rate, Normal S1, Normal S2 Medications Current Medications Medications Dose Ordered Sig/Deb Route Start Time Stop Time Status Last Admin Dose Admin Vancomycin HCl 0 ml @ 0 mls/hr UD IV 11/06/24 17:15 Piperacillin Sod/ Tazobactam Sod 100 ml @ 25 mls/hr Q6HR IV 11/07/24 00:00 11/07/24 18:17 25 MLS/HR Diagnostic Test (Pha) 1 strip ACHS 11/06/24 22:00 11/07/24 17:08 1 STRIP Insulin Human Regular HS SC 11/06/24 22:00 11/06/24 22:56 4 UNITS Insulin Human Regular AC SC 11/07/24 07:00 11/07/24 17:24 6 UNITS Dextrose 50 ml UD PRN IV 11/06/24 17:15 Ondansetron HCl 4 mg Q4HP PRN IV 11/06/24 17:15 11/07/24 10:22 4 MG Docusate Sodium 100 mg BIDPRN PRN PO 11/06/24 17:15 Enoxaparin Sodium 40 mg DAILY SC 11/06/24 17:15 11/07/24 10:16 40 MG Nitroglycerin 0.4 mg Q5MINP PRN SL 11/06/24 17:15 Amlodipine Besylate 5 mg DAILY PO 11/07/24 10:00 11/07/24 10:15 5 MG Clonidine HCl 0.1 mg QPM PO 11/06/24 18:00 11/07/24 18:17 0.1 MG Furosemide 20 mg DAILY PO 11/07/24 10:00 11/07/24 10:15 20 MG Hydrochlorothiazide 25 mg DAILY PO 11/07/24 10:00 11/07/24 10:15 25 MG Nifedipine 30 mg DAILY PO 11/07/24 10:00 11/07/24 10:14 30 MG Atorvastatin Calcium 40 mg HS PO 11/06/24 22:00 11/06/24 21:14 40 MG Levothyroxine Sodium 150 mcg DAILY@0700 PO 11/07/24 07:00 11/07/24 05:31 150 MCG Acetaminophen/ Hydrocodone Bitart 1 tab Q4HPRN PRN PO 11/06/24 21:00 11/06/24 21:15 1 TAB Laboratory Results Laboratory Tests 11/07/24 07:47 Chemistry Test 11/07/24 07:47 Albumin 3.8 g/dL (3.2-4.8) Calcium Level 8.9 mg/dL (8.7-10.4) Total Protein 6.1 g/dL (5.7-8.2) LFT Test 11/07/24 07:47 Alanine Aminotransferase (ALT) 15 U/L (7-40) Alkaline Phosphatase 42 U/L (46-116) L Aspartate Amino Transferase (AST) 14 U/L (13-40) Total Bilirubin 0.3 mg/dL (0.2-1.0) Microbiology Microbiology Date/Time Source Procedure Growth Status 11/06/24 15:58 Blood Blood Culture - Preliminary NO GROWTH AFTER 24 HOURS OF INCUBATION. Resulted Assessment/Plan Assessment/Plan acute right foot infection r/o om mri foot outside imaging showed om despite no wounds ordered podiatry referral fu results ordered vanco and zosyn for now ordered podiatry consult fu results ordered morphine as needed for pain ordered arterial study fu results ordered us doppler fu results ordered esr and crp fu results chronic problems htn cont home medication thyroid cancer thyroidectomy dm ISS htn hld fen/ppx diet hl ivf scd no gi ppx since no hx of gerds or gi bleed Plan discussed with: Patient My Orders Orders - MATY MAO MD Procedure Category Date Status Time Consistent DIET 11/07/24 Transmitted Carb(Ccho)Diabetes Lunch Date of Service: November 07, 2024 Billing Provider: MATY MAO MD Common Visit Codes: [id number] INP/OBS CARE(HIGH) MATY MAO MD November 07, 2024 18:54
[2024-11-07 20:00] VITALS: PULSE 72; RESP 18; O2SAT 97
[2024-11-07 21:00] VITALS: BP 171/83; PULSE 72; RESP 18; TEMP 98.1; O2SAT 97
[2024-11-08 01:00] VITALS: BP 135/93; PULSE 73; RESP 17; TEMP 98; O2SAT 98
[2024-11-08 05:00] VITALS: BP 139/91; PULSE 65; RESP 16; TEMP 98.6; O2SAT 95
[2024-11-08 08:09] LABS: Basophils # (auto) 0 10 ^3/uL (0-0.2); Eosinophils # (auto) 0.2 10 ^3/uL (0-0.8); Eosinophils % (auto) 4.4 % (0.0-7.0); Hemoglobin 11.1 g/dL (12.2-16.2); Lymphocytes # (auto) 1.1 10 ^3/uL (0.4-5.4); Neutrophils # (auto) 1.9 10 ^3/uL (1.6-8.6)
[2024-11-08 08:15] LABS: Basophils % (auto) 1.1 % (0.0-2.0); Hematocrit 33.4 % (36.0-46.0); Lymphocytes % (auto) 30.2 % (10.0-50.0); Mean Corpuscular Hemoglobin 26.6 pg (28.0-32.0); Mean Corpuscular Hgb Conc. 33.4 g/dL (32.0-36.0); Mean Corpuscular Volume 79.6 fL (80.0-100.0); Monocytes # (auto) 0.4 10 ^3/uL (0-1.3); Monocytes % (auto) 10.4 % (0.0-12.0); Neutrophils % (auto) 53.9 % (37.0-80.0); Platelet Count (auto) 255 10^3/uL (140-450); Red Blood Cells 4.19 10^6/uL (4.0-5.20); Red Cell Distribution Width 16.4 % (11.8-14.3); White Blood Cell 3.5 10^3/uL (4.4-10.8)
[2024-11-08 08:32] VITALS: BP 119/64; PULSE 60; RESP 16; TEMP 97.4; O2SAT 98
[2024-11-08 12:32] VITALS: BP 124/57; PULSE 73; RESP 16; TEMP 98.1; O2SAT 98
[2024-11-08] MEDS ORDERED: PIPERACILLIN-TAZOB 3.375GM 100 ML IV SCH (14:00)
[2024-11-08] MEDS ORDERED: VANCOMYCIN 500mg/100mL 100 ML IV ONE (15:15)
[2024-11-08] MEDS ORDERED: HYDR-4902 PO (16:46)
[2024-11-08 16:52] VITALS: BP 144/68; PULSE 81; RESP 16; TEMP 98.1; O2SAT 96
--- NOTE | 2024-11-20 19:54 | DVHDS2 ---
Discharge Summary Date of Admission November 06, 2024 at 17:10 Date of Discharge: November 08, 2024 Labs/Diagnostic Data: Laboratory Results Test 11/08/24 11:33 11/08/24 06:46 11/07/24 07:47 11/06/24 15:58 POC Glucose 336 mg/dl (70-106) White Blood Count 3.5 10^3/uL (4.4-10.8) Red Blood Count 4.19 10^6/uL (4.0-5.20) Hemoglobin 11.1 g/dL (12.2-16.2) Hematocrit 33.4 % (36.0-46.0) Mean Corpuscular Volume 79.6 fL (80.0-100.0) Mean Corpuscular Hemoglobin 26.6 pg (28.0-32.0) Mean Corpuscular Hemoglobin Concent 33.4 g/dL (32.0-36.0) Red Cell Distribution Width 16.4 % (11.8-14.3) Platelet Count 255 10^3/uL (140-450) Mean Platelet Volume 8.4 fL (6.9-10.8) Neutrophils (%) (Auto) 53.9 % (37.0-80.0) Lymphocytes (%) (Auto) 30.2 % (10.0-50.0) Monocytes (%) (Auto) 10.4 % (0.0-12.0) Eosinophils (%) (Auto) 4.4 % (0.0-7.0) Basophils (%) (Auto) 1.1 % (0.0-2.0) Neutrophils # (Auto) 1.9 10 ^3/uL (1.6-8.6) Lymphocytes # (Auto) 1.1 10 ^3/uL (0.4-5.4) Monocytes # (Auto) 0.4 10 ^3/uL (0-1.3) Eosinophils # (Auto) 0.2 10 ^3/uL (0-0.8) Basophils # (Auto) 0 10 ^3/uL (0-0.2) Nucleated Red Blood Cells 0.0 % Creatinine 1.25 mg/dL (0.550-1.02) Glomerular Filtration Rate Calc 48 mL/min (>90) Random Vancomycin Level 12.3 ug/mL (5-10) Sodium Level 142 mmol/L (136-145) Potassium Level 4.4 mmol/L (3.5-5.1) Chloride Level 113 mmol/L (98-107) Carbon Dioxide Level 23 mmol/L (20-31) Anion Gap 6 (5-15) Blood Urea Nitrogen 24 mg/dL (9-23) BUN/Creatinine Ratio 22.4 (10.0-20.0) Serum Glucose 106 mg/dL (74-106) Calcium Level 8.9 mg/dL (8.7-10.4) Total Bilirubin 0.3 mg/dL (0.2-1.0) Aspartate Amino Transferase (AST) 14 U/L (13-40) Alanine Aminotransferase (ALT) 15 U/L (7-40) Alkaline Phosphatase 42 U/L (46-116) Total Protein 6.1 g/dL (5.7-8.2) Albumin 3.8 g/dL (3.2-4.8) Erythrocyte Sedimentation Rate 23 mm/hr (0-20) Lactic Acid Level 1.9 mmol/L (0.4-2.0) C-Reactive Protein High Sensitivity 0.02 mg/dL (<1.0) Other Laboratory Tests 11/08/24 06:46 11/07/24 07:47 Brief Hx & Hospital Course: 64-year-old female past medical history diabetes hypertension hyperlipidemia left ankle sprain osteoporosis thyroid cancer where she is in remission thyroidectomy tendon reconstruction chief complaint patient bilateral foot and ankle pain. Patient states she seen her primary doctor yeni he had order outpatient MRI that redness he had called her and told her that she has a bone infection needs to come to the ER for evaluation. Patient had showed provider her rednet results but there was imaging but no dictated results. According to patient she had tripped and fall in October 04, 2024 I evaluated x-ray at that time and it showed displaced fracture of the base fifth metatarsal bone with soft tissue edema. Patient states she has a lot of pain when she is walking on her foot there was no open wound no drainage patient denies any fever no calf pain or leg swelling she does complain of some right leg numbness from her knee down to her foot but there was no swelling to the leg. No chest pain no shortness with the breath when evaluating patient's labs and imaging CBC was unremarkable CMP was unremarkable only found a glucose elevated at 262 did evaluate patient's foot there was no open wounds noted. We will admit and provide IV antibiotics until results of the Radiology net is retrieved by the machine captain. We will also admit and ask for Podiatry evaluation. Seen by podiatry and after reviewing images no OM noted. Condition at Discharge: Good Final Diagnosis/Problems List acute right foot infection r/o om htn cont home medication thyroid cancer thyroidectomy dm ISS htn hld Discharge Disposition: Home Discharge Instruct/Medications Diet: Regular Activity: No Restrictions, As Tolerated Follow Up/Referral: PCP and podiatry in 7 days Medications: same home medications Discharge Statement: "Patient was advised to return to the ER or call 911 if any headaches, dizziness, shortness of breath, chest pain, abdominal pain, bleeding, fevers, or worsening of medical condition. Patient was counseled about treatment plan, medications, possible side effects, patientverbalized understanding. All questions were answered to the best of my ability. This discharge took greater then 30 minutes in planning, reviewing documentation, counseling the patient, and discussing with other team members." ASSESSMENT ASSESSMENT Assessment Date of Service: November 08, 2024 Billing Provider: MATY MAO MD Common Visit Codes: 16296-WMI/OBS DISCH DAY >30min MATY MAO MD Nov 20, 2024 19:54
== END 2024-11-08 16:40 | disposition home or self-care (01) | DRG 344 ==
LOC: ER 15:31 → OVERFLOW 17:10 → CENTRAL 11-07 01:41
PROVIDERS: ADMIT Hospitalist; ATTEND Hospitalist
DX: E11.69 Type 2 diabetes mellitus with other specified complication (principal); M86.172 Other acute osteomyelitis, left ankle and foot; E78.5 Hyperlipidemia, unspecified; E89.0 Postprocedural hypothyroidism; I10 Essential (primary) hypertension; M81.0 Age-related osteoporosis without current pathological fracture; Z82.3 Family history of stroke; Z82.49 Family history of ischemic heart disease and other diseases of the circulatory system; Z83.3 Family history of diabetes mellitus; Z91.81 History of falling; Z85.850 Personal history of malignant neoplasm of thyroid; Z79.899 Other long term (current) drug therapy
CPT/HCPCS: 36415; 80053; 80202; 82565; 82962; 83605; 85025; 85652; 86141; 87040; 93925; 93970; 96365; 96372; G0378; J1815; J2405; J2543

== ENCOUNTER 2024-12-17 11:27 | Inpatient (IN) | payer MEDICAID ==
[~2024-12-17] VITALS: Ht 154.9 cm; Wt 63.0 kg
--- NOTE | 2024-12-17 11:56 | ED.PDOC ---
History of Present Illness HPI Comments 64-year-old female presents with a chief complaint of hypotension with associated weakness and dizziness. Patient mentions that she went initially to urgent care for feeling weaker than normal and dizzy. Patient was found to be hypotensive at 89/58 and was referred to the ER. Patient was still hypotensive in triage at 70/40. Patient denies any chest pain, SOB, fever, N/V/D, or abdominal pain. Chief Complaint: Low Blood Pressure Time Seen by MD: 11:43 Primary Care Provider: Dr. Jeffery Reviewed Notes: Medications, Allergies Allergies: Coded Allergies: Morphine (Verified Allergy, Unknown, 12/17/24) Home Meds Active Scripts Hydrocodone-Acetaminophen (Hydrocodone Bitartrate/AC 5-325 mg) 1 Tab Tab, 1 TAB PO TID PRN for 7 Days, #21 TAB Prov:MATY MAO MD 11/08/24 Hydrocodone-Acetaminophen (Hydrocodone Bitartrate/AC 5-325 mg) 1 Tab Tab, 1 TAB PO Q6HP PRN, #20 TAB Prov:DERECK GRAY [facility] 10/04/24 Ibuprofen (Ibuprofen) 600 Mg Tab, 1 TAB PO Q6HP PRN, #30 TAB Prov:DERECK GRAY [facility] 10/04/24 Nifedipine (Nifedipine ER) 30 Mg Tab, 30 MG PO DAILY for 30 Days, #30 TAB 3 Refills Prov:ELENA NELSON RESIDENT 10/16/23 Clonidine Hydrochloride (Clonidine Hcl) 0.1 Mg Tab, 1 TAB PO QPM, #30 TAB 2 Refills Prov:CINDY MCDONNELLP 06/26/23 Carvedilol (Carvedilol) 12.5 Mg Tab, 1 TAB PO BID, #60 TAB 5 Refills Prov:CINDY MCDONNELLP 06/25/23 Acetaminophen (Acetaminophen) 500 Mg Tab, 500 MG PO Q4HP PRN, #30 TAB Prov:DERECK GRAY [facility] 05/02/23 Dextromethorphan-Guaifenesin (Mucinex Dm Maximum Streng) 1 Tab Tab, 1 TAB PO BID, #30 TAB Prov:DERECK GRAY [facility] 05/02/23 Benzonatate (Benzonatate) 100 Mg Cap, 1 CAP PO TID, #20 CAP Prov:DERECK GRAY 05/02/23 Loratadine (Claritin) 10 Mg Cap, 10 MG PO DAILY for 14 Days, #14 CAP Prov:DERECK GRAY PAC 05/02/23 Hctz (Hydrochlorothiazide) 25 Mg Tab, 25 MG PO DAILY for 30 Days, #30 TAB Prov:EVELIN FIELD MD 11/03/22 Metronidazole (Flagyl) 500 Mg Tab, 500 MG PO TID for 7 Days, #21 TAB Prov:EVELIN FIELD MD 11/03/22 Furosemide (Lasix) 20 Mg Tb, 1 TAB PO DAILY, #30 TAB 5 Refills Prov:EVELIN FIELD MD 11/03/22 Amlodipine Besylate (NORVASC TABLET) 5 Mg Tb, 5 MG PO DAILY for 30 Days, #30 TAB Prov:EVELIN FIELD MD 11/03/22 Reported Medications Levothyroxine Sodium (Levothyroxine Sodium) 137 Mcg Tab, 1 TAB PO DAILY 10/31/22 Atorvastatin Calcium (ATORVASTATIN CALCIUM) 40 Mg Tab, 1 TAB PO DAILY 10/31/22 Hctz (Hydrochlorothiazide) 25 Mg Tab, 1 TAB PO DAILY 10/31/22 Benazepril Hcl (Benazepril Hcl) 40 Mg Tab, 1 TAB PO DAILY 10/31/22 Carvedilol (Carvedilol) 6.25 Mg Tab, 2 PO BID 10/31/22 Information Source: Patient Mode of Arrival: Ambulatory Severity: Moderate Timing: Hours Duration: Since onset Prehospital treatment: None Past Medical History PAST MEDICAL HISTORY: Cancer, CKF, DM, High Lipids, HTN Surgical History: Hysterectomy, Thyroidectomy J[employer]ING History: No Pertinent JOB [employer] HONING History Family History Family History: Reviewed,noncontributory to illness Social History Smoker: Quit Greater Than 1 Year Alcohol: Denies ETOH Use Drugs: Denies Drug Use Lives In: Home Constitutional: reports: weakness; denies: chills, diaphoresis, fatigue, fever, malaise, sweats, others EENTM: denies: blurred vision, double vision, ear bleeding, ear discharge, ear drainage, ear pain, ear ringing, eye pain, eye redness, hearing loss, mouth pain, mouth swelling, nasal discharge, nose bleeding, nose congestion, nose pain, photophobia, tearing, throat pain, throat swelling, voice changes, others Respiratory: denies: cough, hemoptysis, orthopnea, SOB at rest, shortness of breath, SOB with excertion, stridor, wheezing, others Cardiovascular: denies: chest pain, dizzy spells, diaphoresis, Dyspnea on exertion, edema, irregular heart beat, left arm pain, lightheadedness, palpitations, PND, syncope, others Gastrointestinal: denies: abdomen distended, abdominal pain, blood streaked bowels, constipated, diarrhea, dysphagia, difficulty swallowing, hematemesis, melena, nausea, poor appetite, poor fluid intake, rectal bleeding, rectal pain, vomiting, others Genitourinary: denies: abnormal vagina bleeding, burning, dyspareunia, dysuria, flank pain, frequency, hematuria, incontinence, pain, , vagina discharge, urgency, others Neurological: reports: dizziness; denies: fainting, headache, left sided numbness, left sided weakness, numbness, paresthesia, pre-existing deficit, right sided numbness, right sided weakness, seizure, speech problems, tingling, tremors, weakness, others Musculoskeletal: denies: back pain, gout, joint pain, joint swelling, muscle pain, muscle stiffness, neck pain, others Integumetry: denies: bruises, change in color, change in hair/nails, dryness, laceration, lesions, lumps, rash, wounds, others Allergic/Immunocompromised: denies: Difficulty Healing, Frequent Infections, Hives, Itching, others Hematologic/Lymphatic: denies: anemia, blood clots, easy bleeding, easy bruising, swollen glands, others Endocrine: denies: excessive hunger, excessive sweating, excessive thirst, excessive urination, flushing, intolerance to cold, intolerance to heat, unexplained weight gain, unexplained weight loss, others Psychiatric: denies: anxiety, bipolar disorder, depression, hopeless, panic disorder, schizophrenia, sleepless, suicidal, others All Other Systems: Reviewed and Negative Physical Exam General Appearance: No Apparent Distress, Normal HEENT: Normal ENT Inspection, Pharynx Normal, TMs Normal Neck: Full Range of Motion, Non-Tender, Normal, Normal Inspection Respiratory: Chest Non-Tender, Lungs Clear, No Accessory Muscle Use, No Respiratory Distress, Normal Breath Sounds Cardiovascular: No Edema, No JVD, No Murmur, No Gallop, Normal Peripheral Pulses, Regular Rate/Rhythm Breast Exam: Deferred Gastrointestinal: No Organomegaly, Non Tender, No Pulsatile Mass, Normal Bowel Sounds, Soft Genitalia: Deferred Pelvic: Deferred Rectal: Deferred Extremities: No calf tenderness, Normal capillary refill, Normal inspection, Normal range of motion, Non-tender, No pedal edema Musculoskeletal : Apperance: Normal Neurologic: Alert, bell neck hammerer II-XII nml as Tested, No Motor Deficits, Normal Affect, Normal Mood, No Sensory Deficits Cerebellar Function: Normal Reflexes: Normal Skin: Dry, Normal Color, Warm Lymphatic: No Adenopathy Was a procedure done? Was a procedure done?: No Differential Dx Considerations may include: Dehydration, sepsis, viral syndrome, electrolyte abnormalities, cardiac shock, medication noncompliance X-Ray, Labs, Meds, VS Vital Signs Date Time Temp Pulse Resp B/P (MAP) Pulse Ox O2 Delivery O2 Flow Rate FiO2 12/17/24 12:47 70 12/17/24 12:30 68 98 Room Air 12/17/24 12:30 68 18 104/54 (71) 98 12/17/24 12:10 74 14 96 Room Air* 0 21 12/17/24 12:10 97.9 74 14 127/59 (81) 96 97.9 12/17/24 11:49 69 12/17/24 11:41 98.1 75 17 103/52 (69) 98 98.1 Lab Test 12/17/24 13:20 12/17/24 12:40 12/17/24 12:16 12/17/24 12:14 Range/Units Troponin I High Sensitivity < 3 L 3 L </=34 ng/L Lactic Acid Level 1.4 0.4-2.0 mmol/L Urine Color Yellow Yellow Urine Clarity Turbid H Clear Urine pH 6.0 5.0-9.0 Urine Specific [place] 1.021 1.001-1.035 Urine Protein 2+ H Negative Urine Ketones Negative Negative Urine Blood Negative Negative /uL Urine Nitrite Negative Negative Urine Bilirubin Negative Negative Urine Urobilinogen Normal Negative mg/dL Urine Leukocyte Esterase 3+ Negative /uL Urine RBC 8 0 - 4 /hpf Urine Microscopic WBC 3 0-5 /HPF Urine Squamous Epithelial Cells Mod <5 /hpf Urine Bacteria None seen None Seen /hpf Urine Hyaline Casts Few 0 - 2 /lpf Urine Glucose 2+ H Normal mg/dL White Blood Count 5.3 4.4-10.8 10^3/uL Red Blood Count 4.03 4.0-5.20 10^6/uL Hemoglobin 10.9 L 12.2-16.2 g/dL Hematocrit 32.8 L 36.0-46.0 % Mean Corpuscular Volume 81.3 80.0-100.0 fL Mean Corpuscular Hemoglobin 27.0 L 28.0-32.0 pg Mean Corpuscular Hemoglobin Concent 33.2 32.0-36.0 g/dL Red Cell Distribution Width 16.5 H 11.8-14.3 % Platelet Count 242 140-450 10^3/uL Mean Platelet Volume 8.7 6.9-10.8 fL Neutrophils (%) (Auto) 70.4 37.0-80.0 % Lymphocytes (%) (Auto) 18.7 10.0-50.0 % Monocytes (%) (Auto) 7.2 0.0-12.0 % Eosinophils (%) (Auto) 2.5 0.0-7.0 % Basophils (%) (Auto) 1.2 0.0-2.0 % Neutrophils # (Auto) 3.8 1.6-8.6 10 ^3/uL Lymphocytes # (Auto) 1.0 0.4-5.4 10 ^3/uL Monocytes # (Auto) 0.4 0-1.3 10 ^3/uL Eosinophils # (Auto) 0.1 0-0.8 10 ^3/uL Basophils # (Auto) 0.1 0-0.2 10 ^3/uL Nucleated Red Blood Cells 0.0 % Sodium Level 144 136-145 mmol/L Potassium Level 4.7 3.5-5.1 mmol/L Chloride Level 113 H 98-107 mmol/L Carbon Dioxide Level 18 L 20-31 mmol/L Anion Gap 13 5-15 Blood Urea Nitrogen 29 H 9-23 mg/dL Creatinine 1.31 H 0.550-1.02 mg/dL Glomerular Filtration Rate Calc 46 >90 mL/min BUN/Creatinine Ratio 22.1 H 10.0-20.0 Serum Glucose 149 H 74-106 mg/dL Calcium Level 9.0 8.7-10.4 mg/dL B-Type Natriuretic Peptide 121.48 0-100 pg/mL Current Medications Medications (Trade) Dose Ordered Sig/Deb Route Start Time Stop Time Status Last Admin Sodium Chloride 1,000 ml @ 1,000 mls/hr Q1H ONCE IV 12/17/24 16:30 12/17/24 17:29 DC 12/17/24 16:44 Ondansetron HCl (Zofran) 4 mg ONCE ONCE IV 12/17/24 16:30 12/17/24 16:32 DC 12/17/24 16:44 Time of 1ST Reevaluation: 12:13 Reevaluation 1ST: Unchanged Patient Education/Counseling: Diagnosis, Treatment, Need For Follow Up Family Education/Counseling: No Family Present SEPSIS Sepsis Screen Physician Orders Chest Portable (12/17/24 12:16) Blood Culture (12/17/24 12:16) Electrocardigram (12/17/24 15:16) Vital Signs Date Time Temp Pulse Resp B/P (MAP) Pulse Ox O2 Delivery O2 Flow Rate FiO2 12/17/24 12:47 70 12/17/24 12:30 68 98 Room Air 12/17/24 12:30 68 18 104/54 (71) 98 12/17/24 12:10 74 14 96 Room Air* 0 21 12/17/24 12:10 97.9 74 14 127/59 (81) 96 97.9 12/17/24 11:49 69 12/17/24 11:41 98.1 75 17 103/52 (69) 98 98.1 Laboratory Tests Test 12/17/24 12:14 12/17/24 12:40 White Blood Count 5.3 10^3/uL (4.4-10.8) Lactic Acid Level 1.4 mmol/L (0.4-2.0) Medications Medications Dose Ordered Sig/Deb Route Start Time Stop Time Status Last Admin Dose Admin Ondansetron HCl 4 mg ONCE ONCE IV 12/17/24 16:30 12/17/24 16:32 DC 12/17/24 16:44 Sodium Chloride 1,000 ml @ 1,000 mls/hr Q1H ONCE IV 12/17/24 16:30 12/17/24 17:29 DC 12/17/24 16:44 Departure 1 Departure Time of Disposition: 19:37 (Patient with a worsening hypotension and generalized weakness. Labs and x-ray are so far benign. We will admit patient for further workup and expert consultation) Impression: Primary Impression: Near syncope Additional Impressions: Hypotension Qualified Codes: I95.9 - Hypotension, unspecified Generalized weakness Disposition: ADMITTED INPATIENT Admit to: Med Surg Condition: Serious Critical Care Note Critical Care Time?: Yes Critical care comment: Hypotension Authorized and Performed by: Alexia Royal MD Total critical care time: Approximately 37 minutes Due to a high probability of clinically significant, life threatening deterioration, the patient required my highest level of preparedness to intervene emergently and I personally spent this critical care time directly and personally managing the patient. This critical care time included obtaining a history; examining the patient; pulse oximetry; ordering and review of studies; arranging urgent treatment with development of a management plan; evaluation of patient's response to treatment; frequent reassessment; and, discussions with other providers. This critical care time was performed to assess and manage the high probability of imminent, life-threatening deterioration that could result in multi-organ failure. It was exclusive of separately billable procedures and treating other patients and teaching time. Please see my other sections and the rest of the note for further information on patient assessment and treatment. Stability Stability form required: No I personally scribed for ALEXIA ROYAL MD ([email or web address]) on 12/17/24 at 11:56. Electronically submitted by Ar Vincent ([email or web address]). ALEXIA ROYAL MD Dec 17, 2024 11:56
[2024-12-17 12:10] VITALS: PULSE 74; RESP 14; O2SAT 96
[2024-12-17 12:45] LABS: Hematocrit 32.8 % (36.0-46.0); Hemoglobin 10.9 g/dL (12.2-16.2); Mean Corpuscular Hemoglobin 27.0 pg (28.0-32.0); Mean Corpuscular Volume 81.3 fL (80.0-100.0); Nucleated Red Blood Cells % 0.0 %
[2024-12-17 12:55] LABS: Potassium 4.7 mmol/L (3.5-5.1); Sodium 144 mmol/L (136-145)
[2024-12-17 12:56] LABS: Anion Gap 13 (5-15); Calcium 9.0 mg/dL (8.7-10.4)
[2024-12-17 12:57] LABS: Carbon Dioxide 18 mmol/L (20-31); Chloride 113 mmol/L (98-107)
[2024-12-17 13:01] LABS: BUN/Creatinine Ratio 22.1 (10.0-20.0)
[2024-12-17 13:02] LABS: Urine Protein, UAD 2+ (Negative)
[2024-12-17 13:02] LABS: Blood Urea Nitrogen 29 mg/dL (9-23); Glucose 149 mg/dL (74-106)
--- NOTE | 2024-12-17 13:16 | DVH ---
EXAM: XY CHEST PORTABLE Indication: weakness Technique: Single frontal view of the chest was obtained Comparison: XY CHEST XRAY 1 VIEW on DOS: 10/31/22 FINDINGS: Lines and Tubes: None Lungs: No focal consolidation. Pleura: No effusion. No pneumothorax. Cardiomediastinal contours: Unremarkable. Atherosclerotic vascular calcifications of the thoracic ao rta are noted. Bones: No acute osseous abnormality. IMPRESSION: No acute cardiopulmonary disease.
--- NOTE | 2024-12-17 15:18 | ECG ---
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
[2024-12-17] MEDS: SODIUM CHLORIDE 0.9% 1,000 ML IV ONE (16:44)
[2024-12-17] MEDS: ONDANSETRON HCL 4 MG/2 ML VIAL IV ONE (16:44)
--- NOTE | 2024-12-17 19:53 | DVHHP2 ---
Admitting Diagnosis: Near-syncope Hypotension History of Present Illness 64-year-old female presents with a chief complaint of hypotension with associated weakness and dizziness. Patient mentions that she went initially to urgent care for feeling weaker than normal and dizzy. Patient was found to be hypotensive at 89/58 and was referred to the ER. Patient was still hypotensive in triage at 70/40. Patient denies any chest pain, SOB, fever, N/V/D, or abdominal pain. PAST MEDICAL HISTORY: Cancer, CKF, DM, High Lipids, HTN Surgical History: Hysterectomy, Thyroidectomy SUPPORT WORKER History: No Pertinent SUPPORT WORKER History Family History Family History: Reviewed,noncontributory to illness Social History Smoker: Quit Greater Than 1 Year Alcohol: Denies ETOH Use Drugs: Denies Drug Use Lives In: Home Patient Family History: Cardiovascular disease G8 FATHER Cerebrovascular accident (CVA) G8 MOTHER G8 FATHER Diabetes mellitus G8 MOTHER G8 FATHER FH: heart attack G8 FATHER Hypertension G8 MOTHER G8 FATHER Ischemic heart disease Allergies: Coded Allergies: Morphine (Verified Allergy, Unknown, 12/17/24) Home Meds Active Scripts Hydrocodone-Acetaminophen (Hydrocodone Bitartrate/AC 5-325 mg) 1 Tab Tab, 1 TAB PO TID PRN for 7 Days, #21 TAB Prov:MATY MAO MD 11/08/24 Hydrocodone-Acetaminophen (Hydrocodone Bitartrate/AC 5-325 mg) 1 Tab Tab, 1 TAB PO Q6HP PRN, #20 TAB Prov:DERECK GRAY PAC 10/04/24 Ibuprofen (Ibuprofen) 600 Mg Tab, 1 TAB PO Q6HP PRN, #30 TAB Prov:DERECK GRAY PAC 10/04/24 Nifedipine (Nifedipine ER) 30 Mg Tab, 30 MG PO DAILY for 30 Days, #30 TAB 3 Refills Prov:ELENA NELSON RESIDENT 10/16/23 Clonidine Hydrochloride (Clonidine Hcl) 0.1 Mg Tab, 1 TAB PO QPM, #30 TAB 2 Refills Prov:CINDY MCDONNELLP 06/26/23 Carvedilol (Carvedilol) 12.5 Mg Tab, 1 TAB PO BID, #60 TAB 5 Refills Prov:CINDY MCDONNELLP 06/25/23 Acetaminophen (Acetaminophen) 500 Mg Tab, 500 MG PO Q4HP PRN, #30 TAB Prov:DERECK GRAY PAC 05/02/23 Dextromethorphan-Guaifenesin (Mucinex Dm Maximum Streng) 1 Tab Tab, 1 TAB PO BID, #30 TAB Prov:DERECK GRAY PAC 05/02/23 Benzonatate (Benzonatate) 100 Mg Cap, 1 CAP PO TID, #20 CAP Prov:DERECK GRAY PAC 05/02/23 Loratadine (Claritin) 10 Mg Cap, 10 MG PO DAILY for 14 Days, #14 CAP Prov:DERECK GRAY PAC 05/02/23 Hctz (Hydrochlorothiazide) 25 Mg Tab, 25 MG PO DAILY for 30 Days, #30 TAB Prov:EVELIN FIELD MD 11/03/22 Metronidazole (Flagyl) 500 Mg Tab, 500 MG PO TID for 7 Days, #21 TAB Prov:EVELIN FIELD MD 11/03/22 Furosemide (Lasix) 20 Mg Tb, 1 TAB PO DAILY, #30 TAB 5 Refills Prov:EVELIN FIELD MD 11/03/22 Amlodipine Besylate (NORVASC TABLET) 5 Mg Tb, 5 MG PO DAILY for 30 Days, #30 TAB Prov:EVELIN FIELD MD 11/03/22 Reported Medications Levothyroxine Sodium (Levothyroxine Sodium) 137 Mcg Tab, 1 TAB PO DAILY 10/31/22 Atorvastatin Calcium (ATORVASTATIN CALCIUM) 40 Mg Tab, 1 TAB PO DAILY 10/31/22 Hctz (Hydrochlorothiazide) 25 Mg Tab, 1 TAB PO DAILY 10/31/22 Benazepril Hcl (Benazepril Hcl) 40 Mg Tab, 1 TAB PO DAILY 10/31/22 Carvedilol (Carvedilol) 6.25 Mg Tab, 2 PO BID 10/31/22 Vital Signs Vital Signs Date Time Temp Pulse Resp B/P (MAP) Pulse Ox O2 Delivery O2 Flow Rate FiO2 12/17/24 12:47 70 12/17/24 12:30 98 Room Air 12/17/24 12:30 18 104/54 (71) 12/17/24 12:10 0 21 12/17/24 12:10 97.9 97.9 Physical Exam Generally 64 years old woman, well nourished well developed. No apparent distress HEENT-atraumatic, normocephalic Heart-regular rate and rhythm Lungs clear to auscultate bilaterally Abdomen soft nontender nondistended Musculoskeletal-no edema cyanosis Neuro-AO x3, no focal deficits SEPSIS Sepsis Screen Date sepsis recognized/suspect: Dec 17, 2024 Time Sepsis recognized/suspect: 1129 Recent Procedure: No On Antibiotic Therapy: No Respiratory Rate >20: No Heart Rate >90: No Temp<36 C (96.8 F) or >38.3 C: No SBP <90 or MAP <65 mmHG: Yes New Acute Mental Status Change: No Is the patient on CPAP, BIPAP,: No Physician Orders Chest Portable (12/17/24 12:16) Blood Culture (12/17/24 12:16) Electrocardigram (12/17/24 15:16) Vital Signs Date Time Temp Pulse Resp B/P (MAP) Pulse Ox O2 Delivery O2 Flow Rate FiO2 12/17/24 12:47 70 12/17/24 12:30 68 98 Room Air 12/17/24 12:30 68 18 104/54 (71) 98 12/17/24 12:10 74 14 96 Room Air* 0 21 12/17/24 12:10 97.9 74 14 127/59 (81) 96 97.9 12/17/24 11:49 69 12/17/24 11:41 98.1 75 17 103/52 (69) 98 98.1 Laboratory Tests Test 12/17/24 12:14 12/17/24 12:40 White Blood Count 5.3 10^3/uL (4.4-10.8) Lactic Acid Level 1.4 mmol/L (0.4-2.0) Medications Medications Dose Ordered Sig/Deb Route Start Time Stop Time Status Last Admin Dose Admin Ondansetron HCl 4 mg ONCE ONCE IV 12/17/24 16:30 12/17/24 16:32 DC 12/17/24 16:44 Sodium Chloride 1,000 ml @ 1,000 mls/hr Q1H ONCE IV 12/17/24 16:30 12/17/24 17:29 DC 12/17/24 16:44 Results Labs Test 12/17/24 13:20 12/17/24 12:40 12/17/24 12:16 12/17/24 12:14 Range/Units Troponin I High Sensitivity < 3 L </=34 ng/L Lactic Acid Level 1.4 0.4-2.0 mmol/L Urine Color Yellow Yellow Urine Clarity Turbid H Clear Urine pH 6.0 5.0-9.0 Urine Specific [place] 1.021 1.001-1.035 Urine Protein 2+ H Negative Urine Ketones Negative Negative Urine Blood Negative Negative /uL Urine Nitrite Negative Negative Urine Bilirubin Negative Negative Urine Urobilinogen Normal Negative mg/dL Urine Leukocyte Esterase 3+ Negative /uL Urine RBC 8 0 - 4 /hpf Urine Microscopic WBC 3 0-5 /HPF Urine Squamous Epithelial Cells Mod <5 /hpf Urine Bacteria None seen None Seen /hpf Urine Hyaline Casts Few 0 - 2 /lpf Urine Glucose 2+ H Normal mg/dL White Blood Count 5.3 4.4-10.8 10^3/uL Red Blood Count 4.03 4.0-5.20 10^6/uL Hemoglobin 10.9 L 12.2-16.2 g/dL Hematocrit 32.8 L 36.0-46.0 % Mean Corpuscular Volume 81.3 80.0-100.0 fL Mean Corpuscular Hemoglobin 27.0 L 28.0-32.0 pg Mean Corpuscular Hemoglobin Concent 33.2 32.0-36.0 g/dL Red Cell Distribution Width 16.5 H 11.8-14.3 % Platelet Count 242 140-450 10^3/uL Mean Platelet Volume 8.7 6.9-10.8 fL Neutrophils (%) (Auto) 70.4 37.0-80.0 % Lymphocytes (%) (Auto) 18.7 10.0-50.0 % Monocytes (%) (Auto) 7.2 0.0-12.0 % Eosinophils (%) (Auto) 2.5 0.0-7.0 % Basophils (%) (Auto) 1.2 0.0-2.0 % Neutrophils # (Auto) 3.8 1.6-8.6 10 ^3/uL Lymphocytes # (Auto) 1.0 0.4-5.4 10 ^3/uL Monocytes # (Auto) 0.4 0-1.3 10 ^3/uL Eosinophils # (Auto) 0.1 0-0.8 10 ^3/uL Basophils # (Auto) 0.1 0-0.2 10 ^3/uL Nucleated Red Blood Cells 0.0 % Sodium Level 144 136-145 mmol/L Potassium Level 4.7 3.5-5.1 mmol/L Chloride Level 113 H 98-107 mmol/L Carbon Dioxide Level 18 L 20-31 mmol/L Anion Gap 13 5-15 Blood Urea Nitrogen 29 H 9-23 mg/dL Creatinine 1.31 H 0.550-1.02 mg/dL Glomerular Filtration Rate Calc 46 >90 mL/min BUN/Creatinine Ratio 22.1 H 10.0-20.0 Serum Glucose 149 H 74-106 mg/dL Calcium Level 9.0 8.7-10.4 mg/dL B-Type Natriuretic Peptide 121.48 0-100 pg/mL Primary Diagnosis Near-syncope Low blood pressure Plan Hold antihypertensives Monitor blood pressure Check echo Gentle hydration Full code Lovenox for DVT prophylaxis No GI prophylaxis Plan discussed with: Patient Problems List: (1) Near syncope Status: Acute (2) Hypotension Status: Acute Date of Service: Dec 17, 2024 Billing Provider: JOSE CASTLE MD Common Visit Codes: [id number] INP/OBS CARE (MOD) JOSE CASTLE MD Dec 17, 2024 19:53
[2024-12-17] MEDS ORDERED: DOCUSATE SOD 100 MG CAP PO PRN (20:00)
[2024-12-17] MEDS: LACTATED RINGER'S 1,000 ML IV ONE (21:12)
[2024-12-17] MEDS: SODIUM CHLOR 0.9% PF (SALINE LOCK) 10ML VIAL/SYR IV SCH (22:12)
[2024-12-17] MEDS: ATORVASTATIN 20 MG TAB PO SCH (22:18)
[2024-12-18] VITALS (11 sets, daily range): BP systolic 134–192; BP diastolic 60–118; PULSE 74–99; RESP 14–18; TEMP 97.6–98.9; O2SAT 97–99
[2024-12-18] MEDS: hydrALAZINE HCL 20 MG/ML VL IV ONE (04:54)
[2024-12-18 06:54] LABS: Hematocrit 30.0 % (36.0-46.0); Hemoglobin 10.1 g/dL (12.2-16.2); Mean Corpuscular Hemoglobin 27.1 pg (28.0-32.0); Mean Corpuscular Volume 80.0 fL (80.0-100.0); Nucleated Red Blood Cells % 0.1 %
[2024-12-18 07:02] LABS: Alanine Aminotransferase 14 U/L (7-40); Alkaline Phosphatase 50 U/L (46-116); Anion Gap 9 (5-15); BUN/Creatinine Ratio 23.6 (10.0-20.0); Potassium 4.2 mmol/L (3.5-5.1); Sodium 141 mmol/L (136-145)
[2024-12-18 07:03] LABS: Albumin 3.5 g/dL (3.2-4.8)
[2024-12-18 07:04] LABS: Bilirubin, Total 0.3 mg/dL (0.2-1.0); Blood Urea Nitrogen 29 mg/dL (9-23); Calcium 8.2 mg/dL (8.7-10.4); Carbon Dioxide 18 mmol/L (20-31); Chloride 114 mmol/L (98-107); Glucose 301 mg/dL (74-106); Total Protein 5.6 g/dL (5.7-8.2)
[2024-12-18] MEDS ORDERED: LEVO150T10 PO (08:30)
[2024-12-18] MEDS ORDERED: METF-929 PO (09:43)
[2024-12-18] MEDS ORDERED: METF-370 PO (09:43)
[2024-12-18] MEDS ORDERED: SITA100T7 PO (09:43)
[2024-12-18] MEDS ORDERED: INSU100I52 IJ ×2 (09:43)
[2024-12-18] MEDS ORDERED: ASPI81CH74 PO (09:43)
[2024-12-18] MEDS: ENOXAPARIN SOD 40 MG/0.4 ML SYRINGE SC SCH (09:44)
[2024-12-18] MEDS: ONDANSETRON HCL 4 MG/2 ML VIAL IV PRN (09:48)
[2024-12-18] MEDS ORDERED: PATIENTS OWN MEDICATION (Levothyroxine Sodium 1 TAB) PO SCH (10:00)
[2024-12-18] MEDS ORDERED: DEXTROSE (50%) 50ML SYRG IV PRN (11:15)
[2024-12-18] MEDS: ACCU-CHEK COMFORT CURVE STRIP VI SCH (12:04)
[2024-12-18] MEDS: InsuLIN REG 1unit/0.01ml Soln (100units/ml) SC SCH ×2 (12:05→22:10)
[2024-12-18] MEDS: cefTRIAXone 1GM/50ML D5W 50 ML IV ONE (12:21)
--- NOTE | 2024-12-18 15:52 | DVHPN2 ---
Subjective Patient admitted yesterday for low blood pressure. Today her blood pressure is normal to high range. Patient is otherwise asymptomatic comfortable sleeping in bed. Easily arousable. Denies any chest pain shortness for breath or other issues. Changes from previous H/P or p: No Changes Objective Vitals Vital Signs Date Time Temp Pulse Resp B/P (MAP) Pulse Ox O2 Delivery O2 Flow Rate FiO2 12/18/24 13:30 98.9 85 16 171/97 (121) 97 98.9 12/18/24 08:00 Room Air* 0 21 Intake/Output Intake and Output 12/18/24 07:00 Intake Total 1400 ml Balance 1400 ml Intake Oral 400 ml IV Total 1000 ml # Voids 2 Exam Alert awake oriented to time place and person. Comfortable in bed without distress. HEENT neck supple no JVD. Heart regular rate and rhythm S1-S2. Lungs fair air movement without rales wheezes. Abdomen is obese soft nontender positive bowel sounds. Extremities no edema positive pulses. Neurologically no focal deficits. Medications Current Medications Medications Dose Ordered Sig/Deb Route Start Time Stop Time Status Last Admin Dose Admin Sodium Chloride 10 ml Q8HR IV 12/17/24 22:00 12/18/24 06:00 10 ML Docusate Sodium 100 mg BIDPRN PRN PO 12/17/24 20:00 Acetaminophen 650 mg Q6HP PRN PO 12/17/24 20:00 Ondansetron HCl 4 mg Q4HP PRN IV 12/17/24 20:00 12/18/24 09:48 4 MG Enoxaparin Sodium 40 mg DAILY SC 12/18/24 10:00 12/18/24 09:44 40 MG Atorvastatin Calcium 40 mg HS PO 12/17/24 22:00 12/17/24 22:18 40 MG Patient Own Medication 1 tab DAILY PO 12/18/24 10:00 UNV Clonidine HCl 0.1 mg Q6HP PRN PO 12/17/24 22:45 12/18/24 13:27 0.1 MG Levothyroxine Sodium 112 mcg QAM PO 12/19/24 07:00 Levothyroxine Sodium 25 mcg QAM PO 12/19/24 07:00 Ceftriaxone Sodium 50 ml @ 100 mls/hr DAILY@09 IV 12/19/24 09:00 Diagnostic Test (Pha) 1 strip ACHS 12/18/24 11:30 12/18/24 12:04 1 STRIP Insulin Human Regular HS SC 12/18/24 22:00 Insulin Human Regular AC SC 12/18/24 11:30 12/18/24 12:05 9 UNITS Dextrose 50 ml UD PRN IV 12/18/24 11:15 Carvedilol 6.25 mg Q12HR PO 12/18/24 22:00 UNV Insulin Glargine 8 units HS SC 12/18/24 22:00 UNV Amlodipine Besylate 5 mg QPM PO 12/18/24 18:00 UNV Laboratory Results Laboratory Tests 12/18/24 05:32 Chemistry Test 12/18/24 05:32 Albumin 3.5 g/dL (3.2-4.8) Calcium Level 8.2 mg/dL (8.7-10.4) L Total Protein 5.6 g/dL (5.7-8.2) L LFT Test 12/18/24 05:32 Alanine Aminotransferase (ALT) 14 U/L (7-40) Alkaline Phosphatase 50 U/L (46-116) Aspartate Amino Transferase (AST) 14 U/L (13-40) Total Bilirubin 0.3 mg/dL (0.2-1.0) Urinalysis Test 12/17/24 12:16 Urine Color Yellow (Yellow) Urine Clarity Turbid (Clear) H Urine pH 6.0 (5.0-9.0) Urine Specific [place] 1.021 (1.001-1.035) Urine Protein 2+ (Negative) H Urine Ketones Negative (Negative) Urine Blood Negative /uL (Negative) Urine Nitrite Negative (Negative) Urine Bilirubin Negative (Negative) Urine Urobilinogen Normal mg/dL (Negative) Urine Leukocyte Esterase 3+ /uL (Negative) Urine RBC 8 /hpf (0 - 4) Urine Microscopic WBC 3 /HPF (0-5) Urine Squamous Epithelial Cells Mod /hpf (<5) Urine Bacteria None seen /hpf (None Seen) Urine Hyaline Casts Few /lpf (0 - 2) Urine Glucose 2+ mg/dL (Normal) H Microbiology Microbiology Date/Time Source Procedure Growth Status 12/17/24 12:40 Blood Blood Culture - Preliminary NO GROWTH AFTER 24 HOURS OF INCUBATION. Resulted Assessment/Plan Assessment/Plan Her symptoms appears to be related to the low blood pressure. Patient apparently is taking a multiple at least 3-4 blood pressure medications at home. Feel this may be contributing to her issues. Therefore I will blood pressure medicines discontinued yesterday and her blood pressure has now normal to high range. Given this I will reintroduce 2 of her blood pressure medications today and monitor overnight. Otherwise encouraged activity and ambulation. Continue rest of supportive care and treatment. Further clinical management per clinical course. Discussed with the patient, nurse and patient's daughter per her request over the phone regarding care plan. Plan discussed with: Patient, Daughter My Orders Orders - YANNICK GUERRA MD Procedure Category Date Status Time Glucose Blood PHA 12/18/24 In Process (Accu-Chek Comfort 11:30 Insulin R (Human) PHA 12/18/24 In Process (Insulin R) 22:00 Insulin R (Human) PHA 12/18/24 In Process (Insulin R) 11:30 Dextrose 50% Syringe PHA 12/18/24 In Process 11:15 Carvedilol Tablet PHA 12/18/24 Logged (Coreg Tablet) 22:00 Insulin Lantus PHA 12/18/24 Logged (Glargine) (Lantus) 22:00 Orthostatic Vital ORDERS 12/18/24 Transmitted Signs 14:14 Orthostatic Vital ORDERS 12/18/24 Transmitted Signs 20:14 Orthostatic Vital ORDERS 12/19/24 Transmitted Signs 02:14 Orthostatic Vital ORDERS 12/19/24 Transmitted Signs 08:14 Pt Request For Service PT 12/18/24 Logged 14:14 Amlodipine Tablet PHA 12/18/24 Logged (Norvasc Tablet) 18:00 Hemoglobin A1c LAB 12/18/24 Verified 15:49 Lipid Panel LAB 12/18/24 Verified 15:49 Problem List: (1) Generalized weakness (2) Near syncope (3) Hypertension (4) Hypotension Date of Service: Dec 18, 2024 Billing Provider: YANNICK GUERRA MD Common Visit Codes: [id number] INP/OBS CARE(MOD) YANNICK GUERRA MD Dec 18, 2024 15:52
[2024-12-18 16:21] LABS: Cholesterol 134 mg/dL (< 200); HDL Cholesterol 43 mg/dL (40-59); Triglycerides 155 mg/dL (< 150)
--- NOTE | 2024-12-18 16:31 | DVHSR ---
APPROVED REPORT EXAM: Two-dimensional and M-mode echocardiogram with Doppler and color Doppler. Blood Pressure: 140/60 mmHg INDICATION hypotension r/o cardiac etiology RISK FACTORS Height: 5'1, Weight: 136 DIMENSIONS LVDd3.7 (3.8-5.7cm)LA (2D)4.4 (1.9-4.0cm)Aortic Root3.4 (2.0-3.7cm) LVDs2.5 (2.5-4.0cm)LA (MM) (1.9-4.0cm)Aortic Cusp Exc1.9 (1.5-2.0cm) EF (%) 62.0 (55-70%)Rt. Atrium3.4 (1.9-4.0cm)Asc. Aorta cm IVSd1.0 (0.7-1.1cm)RV (D)3.4 (1.8-2.4cm) PWd1.0 (0.7-1.1cm) Mitral Valve MitralMitral Stenosis E wavem/sMV Mean GR.3mmHg A wavem/sMV Peak GR.7mmHg E/A ratio0.02D MVAcm2 Aortic Valve Aortic ValveAortic Stenosis V11.00m/Joelle Mean GR.5mmHg V21.44m/Joelle Peak GR.9mmHg LVOT Diameter2.0 (1.8-2.4cm)Doppler AVA2.18cm2 Pulmonic Valve V21.00m/s Other Information Technically limited study due to body habitus.patient position. Conclusion Sinus rhythm. Mild aortic root enlargement. Valves appear to be structurally normal. Left ventricular systolic performance is preserved. EF is 60% with normal RV function. Mild pulmonic insufficiency. Small pericardial effusion not hemodynamically significant. No intracardiac masses thrombi or vegetations discernible.
[2024-12-18] MEDS: CARVEDILOL 3.125 MG TAB PO SCH (22:09)
[2024-12-18] MEDS: INSULIN LANTUS (GLARGINE) 1 /0.01ml (100units/ml) SC SCH (22:12)
[2024-12-19] VITALS (7 sets, daily range): BP systolic 134–172; BP diastolic 68–87; PULSE 66–76; RESP 17–19; TEMP 97.5–98.9; O2SAT 97–100
[2024-12-19 05:56] LABS: Hematocrit 32.4 % (36.0-46.0); Hemoglobin 10.7 g/dL (12.2-16.2); Mean Corpuscular Hemoglobin 26.7 pg (28.0-32.0); Mean Corpuscular Volume 80.6 fL (80.0-100.0); Nucleated Red Blood Cells % 0.0 %
[2024-12-19 06:11] LABS: Alanine Aminotransferase 12 U/L (7-40); Anion Gap 9 (5-15); BUN/Creatinine Ratio 24.0 (10.0-20.0); Calcium 8.8 mg/dL (8.7-10.4); Carbon Dioxide 20 mmol/L (20-31); Potassium 4.5 mmol/L (3.5-5.1); Sodium 143 mmol/L (136-145); Total Protein 5.7 g/dL (5.7-8.2)
[2024-12-19 06:15] LABS: Alkaline Phosphatase 41 U/L (46-116); Bilirubin, Total 0.3 mg/dL (0.2-1.0); Blood Urea Nitrogen 25 mg/dL (9-23); Chloride 114 mmol/L (98-107); Glucose 180 mg/dL (74-106)
[2024-12-19 06:28] LABS: Albumin 3.6 g/dL (3.2-4.8)
[2024-12-19] MEDS: LEVOTHYROXINE SODIUM 112 MCG TAB PO SCH (06:51)
[2024-12-19] MEDS: LEVOTHYROXINE SODIUM 25 MCG TAB PO SCH (06:51)
--- NOTE | 2024-12-19 07:10 | ECG ---
[facility] Test Date: 2024-12-17 Test Time: 11:49:08 Pat Name: MIGUEL VELOZ Department: ER Room: 0293 B Gender: F Senior Systems Developer: TYRESE : 1960 Requested By: ALEXIA FARR Order Number: [id number] Reading MD: Jaun Jones Measurements Intervals [place] Rate: 69 P: 84 [place]: 155 QRS: 82 QRSD: 86 T: 88 QT: 419 QTc: 449 Interpretive Statements Sinus rhythm Consider right ventricular hypertrophy Inferior lateral ST segment changes, suggest ischemia. Electronically Signed On 12-22-2024 13:27:27 PDT by Jaun Jones Please click the below link to view image of tracing.
[2024-12-19] MEDS: cefTRIAXone 1GM/50ML D5W 50 ML IV SCH (08:47)
[2024-12-19] MEDS: ACETAMINOPHEN 325 MG TAB PO PRN (15:09)
--- NOTE | 2024-12-19 15:23 | DVHPN2 ---
Subjective Blood pressure normal to arrange. Patient asymptomatic. Echocardiogram reviewed and discussed results with the patient. Normal EF. Changes from previous H/P or p: No Changes Objective Vitals Vital Signs Date Time Temp Pulse Resp B/P (MAP) Pulse Ox O2 Delivery O2 Flow Rate FiO2 12/19/24 13:36 172/87 12/19/24 13:00 98.9 72 19 98 98.9 12/19/24 08:00 Room Air* 0 21 Intake/Output Intake and Output 12/19/24 07:00 Intake Total 1525 ml Output Total 350 ml Balance 1175 ml Intake Oral 1525 ml Output Urine Total 350 ml # Voids 5 Exam Alert awake oriented to time place and person. Comfortable in bed without distress. HEENT neck supple no JVD. Heart regular rate and rhythm S1-S2. Lungs fair air movement without rales wheezes. Abdomen is obese soft nontender positive bowel sounds. Extremities no edema positive pulses. Neurologically no focal deficits. Medications Current Medications Medications Dose Ordered Sig/Deb Route Start Time Stop Time Status Last Admin Dose Admin Sodium Chloride 10 ml Q8HR IV 12/17/24 22:00 12/19/24 14:00 10 ML Docusate Sodium 100 mg BIDPRN PRN PO 12/17/24 20:00 Acetaminophen 650 mg Q6HP PRN PO 12/17/24 20:00 12/19/24 15:09 650 MG Ondansetron HCl 4 mg Q4HP PRN IV 12/17/24 20:00 12/18/24 09:48 4 MG Enoxaparin Sodium 40 mg DAILY SC 12/18/24 10:00 12/19/24 08:52 40 MG Atorvastatin Calcium 40 mg HS PO 12/17/24 22:00 12/18/24 22:09 40 MG Patient Own Medication 1 tab DAILY PO 12/18/24 10:00 UNV Clonidine HCl 0.1 mg Q6HP PRN PO 12/17/24 22:45 12/19/24 11:39 0.1 MG Levothyroxine Sodium 112 mcg QAM PO 12/19/24 07:00 12/19/24 06:51 112 MCG Levothyroxine Sodium 25 mcg QAM PO 12/19/24 07:00 12/19/24 06:51 25 MCG Ceftriaxone Sodium 50 ml @ 100 mls/hr DAILY@09 IV 12/19/24 09:00 12/19/24 08:47 100 MLS/HR Diagnostic Test (Pha) 1 strip ACHS 12/18/24 11:30 12/19/24 11:24 1 STRIP Insulin Human Regular HS [place] 12/18/24 22:00 12/18/24 22:10 6 UNITS Insulin Human Regular AC [place] 12/18/24 11:30 12/19/24 11:24 12 UNITS Dextrose 50 ml UD PRN IV 12/18/24 11:15 Carvedilol 6.25 mg Q12HR PO 12/18/24 22:00 12/19/24 08:51 6.25 MG Amlodipine Besylate 10 mg QPM PO 12/19/24 18:00 Insulin Glargine 12 units HS [place] 12/19/24 22:00 Lisinopril 20 mg BID PO 12/19/24 22:00 Hydralazine HCl 50 mg NOON PO 12/20/24 12:00 Laboratory Results Laboratory Tests 12/19/24 04:42 Chemistry Test 12/19/24 04:42 Albumin 3.6 g/dL (3.2-4.8) Calcium Level 8.8 mg/dL (8.7-10.4) Total Protein 5.7 g/dL (5.7-8.2) LFT Test 12/19/24 04:42 Alanine Aminotransferase (ALT) 12 U/L (7-40) Alkaline Phosphatase 41 U/L (46-116) L Aspartate Amino Transferase (AST) 14 U/L (13-40) Total Bilirubin 0.3 mg/dL (0.2-1.0) Urinalysis Test 12/17/24 12:16 Urine Color Yellow (Yellow) Urine Clarity Turbid (Clear) H Urine pH 6.0 (5.0-9.0) Urine Specific [place] 1.021 (1.001-1.035) Urine Protein 2+ (Negative) H Urine Ketones Negative (Negative) Urine Blood Negative /uL (Negative) Urine Nitrite Negative (Negative) Urine Bilirubin Negative (Negative) Urine Urobilinogen Normal mg/dL (Negative) Urine Leukocyte Esterase 3+ /uL (Negative) Urine RBC 8 /hpf (0 - 4) Urine Microscopic WBC 3 /HPF (0-5) Urine Squamous Epithelial Cells Mod /hpf (<5) Urine Bacteria None seen /hpf (None Seen) Urine Hyaline Casts Few /lpf (0 - 2) Urine Glucose 2+ mg/dL (Normal) H Microbiology Microbiology Date/Time Source Procedure Growth Status 12/17/24 12:40 Blood Blood Culture - Preliminary NO GROWTH AFTER 48 HOURS OF INCUBATION. Resulted Assessment/Plan Assessment/Plan Clinically stable. No dizziness or any other symptoms. I will add lisinopril and hydralazine to her blood pressure regimen given blood pressure is elevated. Monitor her overnight and if her blood pressure improves consider discharge home tomorrow. Discussed with the patient and nurse regarding care plan. Plan discussed with: Patient My Orders Orders - YANNICK GUERRA MD Procedure Category Date Status Time Amlodipine Tablet PHA 12/19/24 In Process (Norvasc Tablet) 18:00 Insulin Lantus PHA 12/19/24 In Process (Glargine) (Lantus) 22:00 Lisinopril Tablet PHA 12/19/24 In Process (Zestril Tablet) 22:00 Hydralazine Hcl PHA 12/20/24 In Process Tablet (Apresoline 12:00 Date of Service: Dec 19, 2024 Billing Provider: YANNICK GUERRA MD Common Visit Codes: [id number] INP/OBS CARE(MOD) YANNICK GUERRA MD Dec 19, 2024 15:23
[2024-12-19] MEDS: LISINOPRIL 20 MG TAB PO SCH (21:51)
[2024-12-19] MEDS: INSULIN LANTUS (GLARGINE) 1 /0.01ml (100units/ml) SC SCH (21:56)
[2024-12-20 05:00] VITALS: BP 157/80; PULSE 81; RESP 18; TEMP 98.7; O2SAT 96
[2024-12-20 05:07] LABS: Hematocrit 30.2 % (36.0-46.0); Hemoglobin 10.4 g/dL (12.2-16.2); Mean Corpuscular Hemoglobin 27.4 pg (28.0-32.0); Mean Corpuscular Volume 79.3 fL (80.0-100.0); Nucleated Red Blood Cells % 0.0 %
[2024-12-20 05:26] LABS: Alanine Aminotransferase 13 U/L (7-40); Albumin 3.5 g/dL (3.2-4.8); Anion Gap 9 (5-15); BUN/Creatinine Ratio 28.7 (10.0-20.0); Calcium 9.6 mg/dL (8.7-10.4); Potassium 4.2 mmol/L (3.5-5.1); Sodium 142 mmol/L (136-145)
[2024-12-20 05:29] LABS: Alkaline Phosphatase 42 U/L (46-116); Bilirubin, Total 0.3 mg/dL (0.2-1.0); Blood Urea Nitrogen 29 mg/dL (9-23); Carbon Dioxide 19 mmol/L (20-31); Chloride 114 mmol/L (98-107); Glucose 139 mg/dL (74-106); Total Protein 5.6 g/dL (5.7-8.2)
[2024-12-20 09:00] VITALS: BP 128/76; PULSE 64; RESP 20; TEMP 98.9; O2SAT 99
[2024-12-20] MEDS ORDERED: HYDR50TA47 PO (12:34)
[2024-12-20] MEDS ORDERED: NIFE1TAB36 PO (12:34)
[2024-12-20] MEDS ORDERED: BENA-36 PO (12:34)
[2024-12-20] MEDS ORDERED: CARV6.2551 PO (12:34)
--- NOTE | 2024-12-20 12:36 | DVHDS2 ---
Discharge Summary Date of Admission Dec 17, 2024 at 19:53 Date of Discharge: Dec 20, 2024 Labs/Diagnostic Data: Laboratory Results Test 12/20/24 12:00 12/20/24 04:53 12/18/24 05:32 12/17/24 13:20 POC Glucose 333 mg/dl (70-106) White Blood Count 5.1 10^3/uL (4.4-10.8) Red Blood Count 3.81 10^6/uL (4.0-5.20) Hemoglobin 10.4 g/dL (12.2-16.2) Hematocrit 30.2 % (36.0-46.0) Mean Corpuscular Volume 79.3 fL (80.0-100.0) Mean Corpuscular Hemoglobin 27.4 pg (28.0-32.0) Mean Corpuscular Hemoglobin Concent 34.5 g/dL (32.0-36.0) Red Cell Distribution Width 16.3 % (11.8-14.3) Platelet Count 197 10^3/uL (140-450) Mean Platelet Volume 8.2 fL (6.9-10.8) Neutrophils (%) (Auto) 60.9 % (37.0-80.0) Lymphocytes (%) (Auto) 23.5 % (10.0-50.0) Monocytes (%) (Auto) 10.3 % (0.0-12.0) Eosinophils (%) (Auto) 4.2 % (0.0-7.0) Basophils (%) (Auto) 1.1 % (0.0-2.0) Neutrophils # (Auto) 3.1 10 ^3/uL (1.6-8.6) Lymphocytes # (Auto) 1.2 10 ^3/uL (0.4-5.4) Monocytes # (Auto) 0.5 10 ^3/uL (0-1.3) Eosinophils # (Auto) 0.2 10 ^3/uL (0-0.8) Basophils # (Auto) 0.1 10 ^3/uL (0-0.2) Nucleated Red Blood Cells 0.0 % Sodium Level 142 mmol/L (136-145) Potassium Level 4.2 mmol/L (3.5-5.1) Chloride Level 114 mmol/L (98-107) Carbon Dioxide Level 19 mmol/L (20-31) Anion Gap 9 (5-15) Blood Urea Nitrogen 29 mg/dL (9-23) Creatinine 1.01 mg/dL (0.550-1.02) Glomerular Filtration Rate Calc 63 mL/min (>90) BUN/Creatinine Ratio 28.7 (10.0-20.0) Serum Glucose 139 mg/dL (74-106) Calcium Level 9.6 mg/dL (8.7-10.4) Total Bilirubin 0.3 mg/dL (0.2-1.0) Aspartate Amino Transferase (AST) 15 U/L (13-40) Alanine Aminotransferase (ALT) 13 U/L (7-40) Alkaline Phosphatase 42 U/L (46-116) Total Protein 5.6 g/dL (5.7-8.2) Albumin 3.5 g/dL (3.2-4.8) Hemoglobin A1c 8.0 % A1C (<5.7) Triglycerides Level 155 mg/dL (< 150) Cholesterol Level 134 mg/dL (< 200) LDL Cholesterol 66 mg/dL (< 100) HDL Cholesterol 43 mg/dL (40-59) Troponin I High Sensitivity < 3 ng/L (</=34) Test 12/17/24 12:40 12/17/24 12:16 12/17/24 12:14 Lactic Acid Level 1.4 mmol/L (0.4-2.0) Urine Color Yellow (Yellow) Urine Clarity Turbid (Clear) Urine pH 6.0 (5.0-9.0) Urine Specific [place] 1.021 (1.001-1.035) Urine Protein 2+ (Negative) Urine Ketones Negative (Negative) Urine Blood Negative /uL (Negative) Urine Nitrite Negative (Negative) Urine Bilirubin Negative (Negative) Urine Urobilinogen Normal mg/dL (Negative) Urine Leukocyte Esterase 3+ /uL (Negative) Urine RBC 8 /hpf (0 - 4) Urine Microscopic WBC 3 /HPF (0-5) Urine Squamous Epithelial Cells Mod /hpf (<5) Urine Bacteria None seen /hpf (None Seen) Urine Hyaline Casts Few /lpf (0 - 2) Urine Glucose 2+ mg/dL (Normal) B-Type Natriuretic Peptide 121.48 pg/mL (0-100) Other Laboratory Tests 12/20/24 04:53 Brief Hx & Hospital Course: 64-year-old female presents with a chief complaint of hypotension with associated weakness and dizziness. Patient mentions that she went initially to urgent care for feeling weaker than normal and dizzy. Patient was found to be hypotensive at 89/58 and was referred to the ER. Patient was still hypotensive in triage at 70/40. Patient denies any chest pain, SOB, fever, N/V/D, or abdominal pain. She is admitted and her blood pressure medications have been discontinued. Once blood pressure normalized and elevated she has resume slowly on her home blood pressure medications which has been titrated. Now her blood pressure is normal. No further labile blood pressure. In the hospital her septic workup including blood cultures and urine culture did not show any significant growth. Labs relatively normal except for high blood sugars. Patient counseled and educated regarding good blood pressure as well as blood sugar control at home. Counseled regarding diet exercise weight loss as well as close follow up with the primary care physician. I have talked with the patient as well as her daughter over the phone regarding patient's hospital diagnosis, treatment she received, blood pressure medications doses adjustments, blood sugar adjustment with the insulin and outpatient follow up with primary care physician. I have also advised to patient to keep a log of her blood pressure daily and to follow up with PCP to adjust the medications. Otherwise given patient's symptoms resolved and blood pressure is improved it is felt she could be safely discharged home. Patient as well as the daughter verbalized understanding of her care and agree with the discharge care plan as outlined. Operations or Procedures APPROVED REPORT EXAM: Two-dimensional and M-mode echocardiogram with Doppler and color Doppler. Blood Pressure: 140/60 mmHg INDICATION hypotension r/o cardiac etiology RISK FACTORS Height: 5'1, Weight: 136 DIMENSIONS LVDd 3.7 (3.8-5.7cm) LA (2D) 4.4 (1.9-4.0cm) Aortic Root 3.4 (2.0- 3.7cm) LVDs 2.5 (2.5-4.0cm) LA (MM) (1.9-4.0cm) Aortic Cusp Exc 1.9 (1.5- 2.0cm) EF (%) 62.0 (55-70%) Rt. Atrium 3.4 (1.9-4.0cm) Asc. Aorta cm IVSd 1.0 (0.7-1.1cm) RV (D) 3.4 (1.8-2.4cm) PWd 1.0 (0.7-1.1cm) Mitral Valve Mitral Mitral Stenosis E wave m/s MV Mean GR. 3mmHg A wave m/s MV Peak GR. 7mmHg E/A ratio 0.0 2D MVA cm2 Aortic Valve Aortic Valve Aortic Stenosis V1 1.00m/s AO Mean GR. 5mmHg V2 1.44m/s AO Peak GR. 9mmHg LVOT Diameter 2.0 (1.8-2.4cm) Doppler AYAKA 2.18cm2 Pulmonic Valve V2 1.00m/s Other Information Technically limited study due to body habitus.patient position. Conclusion Sinus rhythm. Mild aortic root enlargement. Valves appear to be structurally normal. Left ventricular systolic performance is preserved. EF is 60% with normal RV function. Mild pulmonic insufficiency. Small pericardial effusion not hemodynamically significant. No intracardiac masses thrombi or vegetations discernible. SIGNED BY: UVALDO WASSERMAN Sr., MD SIGNED DATE/TIME: 12/18/24 1631 Condition at Discharge: Stable Final Diagnosis/Problems List MALIGNANT HYPERTENSION, DIABETES MELLITUS TYPE 2 Discharge Disposition: Home Discharge Instruct/Medications Diet: Consistent carbohydrate, Cardiac 2g Na,low cholest Activity: No Restrictions, As Tolerated Follow Up/Referral: Primary care physician next week to adjust tube blood pressure medications and insulin and diabetic medication Medications: Take blood pressure medications as prescribed AND per discharge med reconciliation list. New Medications: Benazepril Hcl (Benazepril Hcl) 20 Mg Tab 1 TAB PO BIDBRS, #90 TAB 1 Refill Hydralazine Hcl (Hydralazine Hcl) 50 Mg Tab 1 TAB PO DAILY@LUNCH, #90 TAB 3 Refills Changed Medications: Carvedilol (Carvedilol) 6.25 Mg Tab 1 TAB PO BID, #90 TAB 1 Refill (Changed from: 2 ; Refills: ) Nifedipine (Nifedipine ER) 30 Mg Tab 30 MG PO QPM for 30 Days, #30 TAB 1 Refill (Changed from: DAILY; Refills: 3) Continued Medications: Acetaminophen (Acetaminophen) 500 Mg Tab 500 MG PO Q4HP PRN, #30 TAB Aspirin (Aspirin 81 Low Dose) 81 Mg Chw 81 MG PO DAILY, TAB.CHEW Atorvastatin Calcium (Atorvastatin Calcium) 40 Mg Tab 1 TAB PO DAILY Hydrocodone-Acetaminophen (Hydrocodone Bitartrate/AC 5-325 mg) 1 Tab Tab 1 TAB PO Q6HP PRN, #20 TAB Ibuprofen (Ibuprofen) 600 Mg Tab 1 TAB PO Q6HP PRN, #30 TAB Insulin Lispro (Insulin Lispro) 100 Unit/Ml Inj 18 UNIT IJ AC, INJ Insulin Lispro (Insulin Lispro) 100 Unit/Ml Inj 20 UNIT IJ PRN, INJ Levothyroxine Sodium (Levothyroxine Sodium) 150 Mcg Tab 1 TAB PO DAILY, #90 TAB 1 Refill Metformin HCl (Metformin Hydrochloride) 1,000 Mg Tab 1000 MG PO DAILY, TAB Metformin Hydrochloride (Metformin Hcl) 500 Mg Tab 500 MG PO HS for 30 Days, MG Sitagliptin Phosphate (Januvia) 100 Mg Tab 1 TAB PO DAILY, #30 TAB 5 Refills Discontinued Medications: Amlodipine Besylate (Norvasc Tablet) 5 Mg Tb 5 MG PO DAILY for 30 Days, #30 TAB Benazepril Hcl (Benazepril Hcl) 40 Mg Tab 1 TAB PO DAILY Benzonatate (Benzonatate) 100 Mg Cap 1 CAP PO TID, #20 CAP Carvedilol (Carvedilol) 12.5 Mg Tab 1 TAB PO BID, #60 TAB 5 Refills Clonidine Hydrochloride (Clonidine Hcl) 0.1 Mg Tab 1 TAB PO QPM, #30 TAB 2 Refills Dextromethorphan-Guaifenesin (Mucinex Dm Maximum Streng) 1 Tab Tab 1 TAB PO BID, #30 TAB Furosemide (Lasix) 20 Mg Tb 1 TAB PO DAILY, #30 TAB 5 Refills Hctz (Hydrochlorothiazide) 25 Mg Tab 1 TAB PO DAILY Hctz (Hydrochlorothiazide) 25 Mg Tab 25 MG PO DAILY for 30 Days, #30 TAB Hydrocodone-Acetaminophen (Hydrocodone Bitartrate/AC 5-325 mg) 1 Tab Tab 1 TAB PO TID PRN for 7 Days, #21 TAB Levothyroxine Sodium (Levothyroxine Sodium) 137 Mcg Tab 1 TAB PO DAILY Loratadine (Claritin) 10 Mg Cap 10 MG PO DAILY for 14 Days, #14 CAP Metronidazole (Flagyl) 500 Mg Tab 500 MG PO TID for 7 Days, #21 TAB Scheduled Aspirin (Aspirin 81 Low Dose), 81 MG PO DAILY, (Reported) Atorvastatin Calcium (Atorvastatin Calcium), 1 TAB PO DAILY, (Reported) Benazepril Hcl (Benazepril Hcl), 1 TAB PO BIDBRS Carvedilol (Carvedilol), 1 TAB PO BID Hydralazine Hcl (Hydralazine Hcl), 1 TAB PO DAILY@LUNCH Insulin Lispro (Insulin Lispro), 18 UNIT IJ AC, (Reported) Insulin Lispro (Insulin Lispro), 20 UNIT IJ PRN, (Reported) Levothyroxine Sodium (Levothyroxine Sodium), 1 TAB PO DAILY, (Reported) Metformin HCl (Metformin Hydrochloride), 1,000 MG PO DAILY, (Reported) Metformin Hydrochloride (Metformin Hcl), 500 MG PO HS, (Reported) Nifedipine (Nifedipine ER), 30 MG PO QPM Sitagliptin Phosphate (Januvia), 1 TAB PO DAILY, (Reported) Scheduled PRN Acetaminophen (Acetaminophen), 500 MG PO Q4HP PRN Hydrocodone-Acetaminophen (Hydrocodone Bitartrate/AC 5-325 mg), 1 TAB PO Q6HP PRN Ibuprofen (Ibuprofen), 1 TAB PO Q6HP PRN Discontinued Medications Amlodipine Besylate (Norvasc Tablet), 5 MG PO DAILY Benazepril Hcl (Benazepril Hcl), 1 TAB PO DAILY, (Reported) Benzonatate (Benzonatate), 1 CAP PO TID Carvedilol (Carvedilol), 1 TAB PO BID Clonidine Hydrochloride (Clonidine Hcl), 1 TAB PO QPM Dextromethorphan-Guaifenesin (Mucinex Dm Maximum Streng), 1 TAB PO BID Furosemide (Lasix), 1 TAB PO DAILY Hctz (Hydrochlorothiazide), 1 TAB PO DAILY, (Reported) Hctz (Hydrochlorothiazide), 25 MG PO DAILY Hydrocodone-Acetaminophen (Hydrocodone Bitartrate/AC 5-325 mg), 1 TAB PO TID PRN Levothyroxine Sodium (Levothyroxine Sodium), 1 TAB PO DAILY, (Reported) Loratadine (Claritin), 10 MG PO DAILY Metronidazole (Flagyl), 500 MG PO TID Discharge Statement: "Patient was advised to return to the ER or call 911 if any headaches, dizziness, shortness of breath, chest pain, abdominal pain, bleeding, fevers, or worsening of medical condition. Patient was counseled about treatment plan, medications, possible side effects, patientverbalized understanding. All questions were answered to the best of my ability. This discharge took greater then 30 minutes in planning, reviewing documentation, counseling the patient, and discussing with other team members." ASSESSMENT ASSESSMENT Assessment MALIGNANT HYPERTENSION, DIABETES MELLITUS TYPE 2 Date of Service: Dec 20, 2024 Billing Provider: YANNICK GUERRA MD Common Visit Codes: 72991-UVT/[id number] DISCH DAY >30min YANNICK GUERRA MD Dec 20, 2024 12:36
[2024-12-20 13:00] VITALS: BP_SYST 146; BP_SYST 169; BP_DIAS 80; BP_DIAS 85; PULSE 65; PULSE 72; RESP 20; TEMP 98.6; O2SAT 98
[2024-12-20 13:55] VITALS: BP 168/77; PULSE 66
--- NOTE | 2024-12-22 07:37 | ECG ---
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
== END 2024-12-20 14:36 | disposition home or self-care (01) | DRG 207 ==
LOC: ER 11:27 → OVERFLOW 19:53 → WEST WING 19:55
PROVIDERS: ADMIT Hospitalist; ATTEND Hospitalist
DX: I95.2 Hypotension due to drugs (principal); I31.39 Other pericardial effusion (noninflammatory); E11.9 Type 2 diabetes mellitus without complications; I08.0 Rheumatic disorders of both mitral and aortic valves; I10 Essential (primary) hypertension; Z88.5 Allergy status to narcotic agent; Z79.1 Long term (current) use of non-steroidal anti-inflammatories (NSAID); Z79.899 Other long term (current) drug therapy; Z87.891 Personal history of nicotine dependence; Z82.49 Family history of ischemic heart disease and other diseases of the circulatory system; Z90.710 Acquired absence of both cervix and uterus; T46.1X5A Adverse effect of calcium-channel blockers, initial encounter; Y92.89 Other specified places as the place of occurrence of the external cause
CPT/HCPCS: 36415; 71045; 80048; 80053; 80061; 81001; 82962; 83036; 83605; 83880; 84484; 85025; 87040; 87086; 93005; 93306; 96361; 96374; 97110; 97116; 97163; 97530; 99291; G0378; J1815; J2405